=== PATIENT | male | born 1955 | race Caucasian/White ===

== ENCOUNTER → 2017-06-16 09:29 | Outpatient (CLI) | payer BC, SELFPAY ==
[2017-06-16 11:44] LABS: Absolute Lymphocyte Count 0.93 X10^3/ul (0.83-4.51); Absolute Neutrophil Count 4.4 X10^3/uL (2.0-7.7); Basophil# 0.03 X10^3/uL; Basophil% 0.5 % (0-1); Eosinophils% 3.2 % (0-5); Hematocrit 47.9 % (40-54); Hemoglobin 16.6 g/dl (13.0-16.5); Lymphocyte # 0.93 X10^3/ul (4.0); Lymphocyte % 14.9 % (19-41); Mean Corp Hgb Conc 34.7 g/gl (32-36); Mean Corpuscular Hgb 32.1 pg (27.0-32.0); Mean Corpuscular Volume 92.6 fL (80-94); Mean Platelet Vol. 11.6 fl (6.2-12.0); Monocyte# 0.72 X10^3/uL; Monocyte% 11.5 % (0-10); Neutrophil # 4.37 X10^3/uL (2.7-7.7); Neutrophil % 69.9 % (47-70); Platelet Count 209 K/mm3 (150-450); RBC Distribution Width CV 12.6 % (11.6-14.6); Red Blood Count 5.17 M/mm3 (4.6-6.2); White Blood Count 6.3 K/mm3 (4.4-11.0)
[2017-06-16 11:50] LABS: POSITIVE COUNT NO; POSITIVE DIFFERENTIAL NO; POSITIVE MORPHOLOGY NO
[2017-06-16 12:29] LABS: Anion Gap 9 (5-15); BUN 15 mg/dL (7-18); BUN/Creat Ratio 14.4 RATIO (10-20); Calcium,Total 8.6 mg/dL (8.5-10.1); Chloride 105 mmol/L (98-107); Creatinine, Serum 1.04 mg/dL (0.70-1.30); EST Glomerular Filtration Rate 77 mL/min (>60); Est Glom Filt Rate - Afr Amer 93 mL/min (>60); Glucose 95 mg/dL (74-106); Potassium 4.1 mmol/L (3.5-5.1); Sodium Level 141 mmol/L (136-145); Thyroid Stim Hormone (TSH) 1.33 uIU/mL (0.358-3.74)
[2017-06-17 08:57] LABS: Vitamin B12 474 pg/mL (211-911)
== END ==
PROVIDERS: Family Provider Family Medicine; PCP Family Medicine; Visit Provider Family Medicine
DX: E78.5 Hyperlipidemia, unspecified (principal); F32.9 Major depressive disorder, single episode, unspecified; R41.3 Other amnesia
CPT/HCPCS: 36415; 80048; 82607; 84439; 84443; 85025

== ENCOUNTER → 2018-03-09 14:52 | Outpatient (CLI) | payer BC, SELFPAY ==
[2018-03-09 15:12] LABS: PSA,Total- Diagnostic < 0.01 ng/mL (0.0-4.0)
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
== END ==
PROVIDERS: Obstetrics & Gynecology Reproductive Endocrinology; Family Provider Family Medicine; PCP Family Medicine
DX: C61 Malignant neoplasm of prostate (principal)
CPT/HCPCS: 84153

== ENCOUNTER → 2018-07-13 10:37 | Outpatient (CLI) | payer BC, SELFPAY ==
[2018-07-13 12:30] LABS: Cholesterol 180 mg/dL (200); High Density Lipoprotein 36 mg/dL; T4 Free Direct 0.85 ng/dL (0.76-1.46); Thyroid Stim Hormone (TSH) 1.72 uIU/mL (0.358-3.74); Triglycerides 282 mg/dL; Very Low Density Lipoprotein 56 mg/dL (5-40)
== END ==
PROVIDERS: Family Provider Family Medicine; PCP Family Medicine; Visit Provider Family Medicine
DX: E78.5 Hyperlipidemia, unspecified (principal); F32.9 Major depressive disorder, single episode, unspecified
CPT/HCPCS: 36415; 80061; 84439; 84443

== ENCOUNTER → 2018-07-15 13:26 | Outpatient (CLI) | payer SELFPAY ==
--- NOTE | 2018-07-15 13:33 | CT_ITS ---
STUDY: CT CHEST WITHOUT CONTRAST REASON FOR EXAM: Male, 62 years old. Calcium scoring examination. Radiological over read examination. RADIATION DOSAGE (If Supplied By Facility): CTDIvol = ( 12.19 ) mGy, DLP = ( 243.79 ) mGycm TECHNIQUE: Transaxial imaging was performed without the administration of intravenous contrast material. Individualized dose optimization techniques were used for this CT. COMPARISON: None. FINDINGS: Minimal increased linear markings at the lung bases suggests a mild linear scarring at the lung bases. There is no demonstrated pleural abnormality. There are calcifications of the coronary arteries. There are multiple small lymph nodes within the mediastinum, which are normal in size and morphology most compatible with reactive lymph hyperplasia. Normal hilar regions. Normal unenhanced pulmonary arteries. There is atherosclerotic calcification of the aortic arch. There are degenerative changes of the thoracic spine. There is no demonstrated abnormality of the visualized upper abdomen. CT/Limited Chest CT w/CCTA IMPRESSION: Mild linear scarring at the lung bases. Coronary artery calcification. Electronically Signed: Nayan Donohue, at 14:52 EDT , Service support ,
[2018-07-15 13:47] VITALS: BP 122/80; PULSE 66; RESP 18; O2SAT 99; BMI 28.5
--- NOTE | 2018-07-16 07:22 | CA.SCORE ---
Calcium Scoring Date of Study:: 07/16/18 Coronary Calcium Scoring: High-resolution Computed Tomographic imaging of the chest was performed on [ ], with particular attention paid to the coronary arteries. Images from the examination were analyzed for the presence and extent of coronary artery calcification , using coronary calcium quantification software. The patient tolerated the procedure well and there were no complications. The results of the coronary calcification analysis are provided below. - Findings Left Main (LM): 110 Left Anterior Descending (LAD): 17.5 Left Circumflex (LCX): 0 Right Coronary Artery (RCA): 0 Total Agatston Score: 127.5 Percentile Rankin - Conclusion Calcium Scoring Interpretation: Calcium Score Interpretation 0 No identifiable atherosclerotic plaque. Very low cardiovascular disease risk. <5% chance of presence coronary artery disease A Negative Examination 1-10 Minimal Plaque burden. Significant coronary artery disease very unlikely. 11-100 Mild plaque burden. Likely mild or minimal coronary atherosclerosis. 101-400 Moderate plaque burden Moderate non-obstructive coronary artery disease highly likely. Over 400 Extensive plaque burden. High likelihood of at least one significant coronary stenosis (>50% diameter) Calcium Score: 101 - 400 Moderate non-obstructive coronary artery disease highly like - The above is suggestive of moderate nonobstructive coronary disease likely. A full evaluation of cardiac risk should include an assessment of all conventional risk factors.
== END ==
PROVIDERS: Family Provider Family Medicine; PCP Family Medicine; Referring Provider Family Medicine; Visit Provider Family Medicine
DX: R73.01 Impaired fasting glucose (principal); E78.5 Hyperlipidemia, unspecified; Z82.49 Family history of ischemic heart disease and other diseases of the circulatory system
CPT/HCPCS: 75571; 76380

== ENCOUNTER → 2019-02-10 | Outpatient (CLI) | payer BC, SELFPAY ==
[2018-07-15 13:47] VITALS: BMI 28.5
[2019-02-10 15:38] LABS: Absolute Neutrophil Count 6.8 X10^3/uL (2.0-7.7); Basophil# 0.06 X10^3/uL; Basophil% 0.7 % (0-1); Eosinophils% 3.4 % (0-5); Hematocrit 50.6 % (40-54); Hemoglobin 16.6 g/dL (13.0-16.5); Mean Corp Hgb Conc 32.8 g/dL (32-36); Mean Corpuscular Hgb 30.7 pg (27.0-32.0); Mean Corpuscular Volume 93.7 fL (80-94); Mean Platelet Vol. 11.5 fl (6.2-12.0); Monocyte# 0.84 X10^3/uL; Monocyte% 9.5 % (0-10); NRBC Flagged by Analyzer 0 % (0-5); Neutrophil # 6.83 X10^3/uL (2.7-7.7); Neutrophil % 77.2 % (47-70); Platelet Count 204 K/mm3 (150-450); RBC Distribution Width CV 12.1 % (11.6-14.6); RBC Distribution Width SD 41.8 fl (35.1-43.9); White Blood Count 8.9 K/mm3 (4.4-11.0)
[2019-02-10 16:00] LABS: ALB/GLOB Ratio 1.1 RATIO (0.9-2.4); AST(SGOT) 13 U/L (15-37); Alanine Aminotransfer ALT/SGPT 33 U/L (16-61); Albumin, Serum 3.9 g/dL (3.2-5.0); Alkaline Phosphatase 82 U/L (45-117); Anion Gap 11 (5-15); BUN 15 mg/dL (7-18); CRP 8.55 mg/L (0.0-3.0); Calcium,Total 8.8 mg/dL (8.5-10.1); Chloride 109 mmol/L (98-107); Creatinine, Serum 1.07 mg/dL (0.70-1.30); EST Glomerular Filtration Rate 74 mL/min (>60); Est Glom Filt Rate - Afr Amer 90 mL/min (>60); Globulin 3.4 g/dL (2.2-4.2); Glucose 98 mg/dL (74-106); Potassium 3.6 mmol/L (3.5-5.1); Protein, Total 7.3 g/dL (6.4-8.2); Rheumatoid Factor < 10.0 IU/mL (<15); Sodium Level 144 mmol/L (136-145); Uric Acid 7.6 mg/dL (3.5-7.2)
[2019-02-10 16:12] LABS: Erythrocyte Sedimentation Rate 12 mm/hr (0-20)
[2019-02-12 12:06] LABS: Anti-Centromere B Ab <0.2 AI (0.0-0.9); Anti-Chromatin <0.2 AI (0.0-0.9); Anti-Jo <0.2 AI (0.0-0.9); Anti-Scleroderma-70 AB <0.2 AI (0.0-0.9); Anti-ribosomal P Antibodies <0.2 AI (0.0-0.9); RNP Ab <0.2 AI (0.0-0.9); SJOGREN'S Anti-SS-A test < 0.2 AI (0.0-0.9); SJOGREN'S Anti-SS-B test < 0.2 AI (0.0-0.9); Smith Ab <0.2 AI (0.0-0.9); Smith/RNP Ab <0.2 AI (0.0-0.9)
[2019-02-13 09:12] LABS: Anti-dsDNA Ab 3 IU/mL (0-9)
[2019-02-14 12:47] LABS: CCP IgG Antibodies 7 units (0-19)
== END | disposition home or self-care (01) ==
PROVIDERS: Family Provider Family Medicine; PCP Family Medicine; Visit Provider Family Medicine
DX: E78.5 Hyperlipidemia, unspecified (principal); R73.01 Impaired fasting glucose; M25.472 Effusion, left ankle
CPT/HCPCS: 36415; 80053; 84550; 85025; 85652; 86038; 86140; 86200; 86225; 86235; 86431

== ENCOUNTER 2019-02-11 18:32 | Observation (INO) | payer BC, SELFPAY ==
[2018-07-15 13:47] VITALS: BMI 28.5
[2019-02-11 18:33] VITALS: BP 155/88; PULSE 110; RESP 16; TEMP 36.3; O2SAT 100; BMI 27.8
--- NOTE | 2019-02-11 18:40 | EKG12_ITS ---
Test Reason : CP Blood Pressure : / mmHG Vent. Rate : 110 BPM Atrial Rate : 110 BPM P-R Int : 182 ms QRS Dur : 086 ms QT Int : 324 ms P-R-T Axes : 054 049 041 degrees QTc Int : 438 ms Sinus tachycardia Otherwise normal ECG Confirmed by BRENDEN SEBASTIAN, JAYLENE ([id number]), avid editor SHAE GODDARD ([id number]) on 02/14/2019 10:05:26 AM Referred By: YASH Confirmed By:JAYLENE WILCOX MD
--- NOTE | 2019-02-11 18:41 | ED.VIS.GEN ---
History of Present Illness Chief Complaint: Shortness of Breath Informant: Patient Onset: Today Context: Sudden Onset Timing: Continuous Current Severity: Mild Maximum Severity: Moderate Narrative: The patient is an otherwise healthy 63-year-old male with no significant medical history presents to the emergency department with sudden onset chest tightness and dyspnea. Patient states that he saw his primary care yesterday. He was started on prednisone for questionable gout in his ankle. He states that today, he was feeling improved. He was outside playing with his dog. He states that he had sudden onset left-sided substernal chest pressure and felt like he could not catch his breath. He was mildly nauseated. He was given aspirin by squad. He states that the pain has subsided. He denies any fevers or chills. He has no history of coronary vascular disease. He does not smoke. Prior similar symptoms: No Recent Illness/Hospitalization: No Past Medical History - Allergies and Home Meds Allergies/Adverse Reactions: Allergies No Known Allergies Allergy (Verified 02/11/19 19:08) Primary Care Physician: Clemente Tovar MD [Primary Care Provider] - Prior records reviewed: Yes Past Medical History: None Surgical History: cholecystectomy Smoking Status: Unknown if ever smoked Review of Systems General: Denies: Chills, Fever, Sweats Eyes: Denies: Visual changes - bilaterally, Diplopia ENT: Denies: Rhinorrhea, Sore throat Cardiovascular: Reports: Chest pain. Denies: Palpitations Respiratory: Reports: Dyspnea. Denies: Cough, Dyspnea on exertion Gastrointestinal: Denies: Abdominal pain, Nausea, Vomiting, Diarrhea, Melena, Hematochezia Genitourinary: Denies: Dysuria, Hematuria, Frequency Musculoskeletal: Denies: Back pain, Extremity Pain Skin: Denies: Rash, Wounds Neurological: Denies: Headache, Weakness, Numbness Physical Exam Vital Signs/Narrative: Vital Signs Temp Pulse Resp BP Pulse Ox 02/11/19 18:33 97.4 F L 110 H 16 155/88 H 100 Inital Vital Signs reviewed: Yes General: Well nourished, Well developed, No Acute Distress Head: Normocephalic, Atraumatic Eyes: Perrl, EOMI ENT: Moist mucous membranes, No rhinorrhea Neck: Supple, Nontender Cardiovascular: Regular rate, Regular rhythm, No murmurs Respiratory: No distress, CTA bilaterally, Chest nontender Abdomen: Soft, Nontender, Nondistended, Normal bowel sounds Back: Nontender, Normal Inspection Extremities: Nontender, No edema Skin: Normal color, No rash Neurological: Alert, Oriented x3, Cranial nerves II-XII grossly intact, Normal Strength, Normal Sensation Psychological: Normal affect, Normal Mood Diagnostic/Tx/Re-eval Chest X-Ray - ED: 2 View, Read by ED Physician, Normal, Heart, Lungs, Mediastinum Abnormal Lab Results 02/11/19 02/11/19 02/11/19 19:00 19:00 19:00 WBC 14.1 H RBC 5.10 Hgb 16.0 Hct 47.6 MCV 93.3 MCH 31.4 MCHC 33.6 RDW Std Deviation 41.1 RDW Coeff of Bird 11.9 Plt Count 266 MPV 10.9 Immature Gran % (Auto) 0.400 Neut % (Auto) 91.6 H Lymph % (Auto) 3.[address] [place] % (Auto) 4.6 Eos % (Auto) 0.0 Baso % (Auto) 0.1 Absolute Neuts (auto) 12.9 H Absolute Lymphs (auto) 0.46 L Nucleated RBC % 0 Differential Comment Platelet Estimate ADEQUATE RBC Morphology NORM C+C D-Dimer Quant (PE/DVT) 0.65 H* Sodium 142 Potassium 3.9 Chloride 110 H Carbon Dioxide 24.0 Anion Gap 8 BUN 19 H Creatinine 1.20 Estim Creat Clear Calc 67.11 Est GFR (MDRD) Af Amer 79 Est GFR (MDRD) Non-Af 65 BUN/Creatinine Ratio 15.8 Glucose 255 H Calcium 9.1 Troponin I < 0.015 - Rhythm Strip Rhythm Strip: Sinus Tach Rate: 110 Ectopy: None - EKG Initial EKG Interpretation: Sinus Rhythm, No Acute Injury Pattern, Sinus Tachycardia Prior: No Prior - Medical Decision Making The patient presents to the emergency department with sudden onset chest pain and dyspnea. The pain was not radiating. He states he is never really had pain like this before. The patient does not have any history of coronary vascular disease, but does have a strong family history. He did have an outpatient calcium scoring done earlier this year which is in the indeterminate range. He is had no recent stress testing. The patient did have some pleuritic component to his pain. D-dimer was ordered and was mildly elevated. CTA was obtained. The patient's cardiac enzymes were negative. At this point, I do feel that the most prudent plan would be to admit the patient for cardiac rule out. Patient was discussed with the hospitalist. Impression 1. Chest pain ED Disposition - Plan for ED Patient: Referrals: Clemente Tovar MD [Primary Care Provider] -
--- NOTE | 2019-02-11 18:45 | RAD_ITS ---
STUDY: X-RAY CHEST REASON FOR EXAM: Male, 63 years old. Shortness of breath TECHNIQUE: Frontal view of the chest COMPARISON: None. FINDINGS: There is left basilar opacity which may represent atelectasis. The lungs are otherwise clear. There are no pleural effusions. There is no pneumothorax. The heart is normal in size. The visualized osseous structures are within normal limits. RAD/Chest 1 View (Portable) IMPRESSION: Left basilar opacity which likely represents atelectasis. Otherwise, clear lungs. Electronically Signed: Ariel Olivas, at 19:14 EDT Tel , Service support ,
[2019-02-11 19:12] VITALS: O2SAT 95
[2019-02-11] MEDS: 0.9% Normal Saline 1,000 ML 150 ML IV (19:14)
[2019-02-11 19:17] LABS: Absolute Lymphocyte Count 0.46 X10^3/uL (0.83-4.51); Absolute Neutrophil Count 12.9 X10^3/uL (2.0-7.7); Basophil# 0.01 X10^3/uL; Basophil% 0.1 % (0-1); Hematocrit 47.6 % (40-54); Lymphocyte # 0.46 X10^3/ul (4.0); Lymphocyte % 3.3 % (19-41); Mean Corp Hgb Conc 33.6 g/dL (32-36); Mean Corpuscular Hgb 31.4 pg (27.0-32.0); Mean Corpuscular Volume 93.3 fL (80-94); Mean Platelet Vol. 10.9 fl (6.2-12.0); Monocyte# 0.65 X10^3/uL; Monocyte% 4.6 % (0-10); NRBC Flagged by Analyzer 0 % (0-5); Neutrophil # 12.89 X10^3/uL (2.7-7.7); Neutrophil % 91.6 % (47-70); POSITIVE DIFFERENTIAL YES; Platelet Count 266 K/mm3 (150-450); RBC Distribution Width CV 11.9 % (11.6-14.6); RBC Distribution Width SD 41.1 fl (35.1-43.9); White Blood Count 14.1 K/mm3 (4.4-11.0)
[2019-02-11 19:28] LABS: Anion Gap 8 (5-15); BUN 19 mg/dL (7-18); BUN/Creat Ratio 15.8 RATIO (10-20); Calcium,Total 9.1 mg/dL (8.5-10.1); Chloride 110 mmol/L (98-107); EST Glomerular Filtration Rate 65 mL/min (>60); Est Glom Filt Rate - Afr Amer 79 mL/min (>60); Estimated Creatinine Clearance 67.11 ml/min; Glucose 255 mg/dL (74-106); Potassium 3.9 mmol/L (3.5-5.1); Sodium Level 142 mmol/L (136-145)
[2019-02-11 19:46] LABS: Differential Indicated SCAN CRITERIA MET
[2019-02-11 19:48] LABS: D-Dimer Quantitative (DVT/PE) 0.65 FEU/ug/m (0.27-0.49)
--- NOTE | 2019-02-11 19:49 | CT_ITS ---
STUDY: CTA CHEST REASON FOR EXAM: Male, 63 years old. Chest pain RADIATION DOSAGE (If Supplied By Facility): CTDIvol = ( 13.49 ) mGy, DLP = ( 497.85 ) mGycm TECHNIQUE: The examination was performed with the intravenous administration of IV Isovue 370 100ML. Post-processing of the angiographic images was performed, with multiplanar reformation and 3D reconstruction. Individualized dose optimization techniques were used for this CT. COMPARISON: None. FINDINGS: Normal enhancement of the main pulmonary artery and right and left pulmonary arteries. Normal enhancement of the bilateral peripheral pulmonary arteries. There is no demonstrated pulmonary embolism. Normal thoracic aorta and visualized great vessels. There is no demonstrated aortic dissection. Normal heart and pericardium. Normal mediastinum. Normal hilar regions. Normal visualized trachea and bronchi. The lungs are well expanded. Normal pulmonary parenchyma. Normal pleura. Normal chest wall structures. Normal osseous structures. Normal visualized upper abdomen. CT/CTA Chest W/WO Contrast IMPRESSION: Normal CTA chest examination, without a demonstrated pulmonary embolism or arterial dissection. Electronically Signed: Ariel Olivas, at 21:12 EDT Tel , Service support ,
[2019-02-11 20:48] LABS: Platelet Estimate ADEQUATE (ADEQ); Red Cell Morphology NORM C+C NORMAL (NORM C&C)
[2019-02-11 21:12] VITALS: BP 142/74; PULSE 104; RESP 20; O2SAT 97
--- NOTE | 2019-02-11 21:18 | PCM.HP.STD ---
Problem List (1) Chest pain Status: Acute (2) Hyperlipidemia Status: Chronic (3) Depression Status: Chronic History of Present Illness Date of Admission: 02/11/19 Chief Complaint: chest pain The patient is a 63 year old M with a significant history of hyperlipidemia; former smoker; prostate cancer s/p prostatectomy; depression; and anxiety who presented to emergency department with chest pain. His chest pain started while walking to disentangle his dog. Patient was playing with his dog and his dog got entangled multiple times. He walked to disentangle his dog and got excruciating substernal chest pain. He describes his chest pain as a tightness. The chest pain is nonradiating. Associated with symptoms is shortness of breath and some mild nausea without vomiting. There are no alleviating or aggravating factors. He received a full dose aspirin from the paramedics. At the emergency department his chest pain had subsided although it was not completely gone. He has had some chest pain previously but this is different. His previous chest pain occurred about 4 years ago. As far as family history, patient's father had multiple heart attacks with his first heart attack in his 50s. Past Medical History Past Medical History (Chronic Problems): Chronic Problems Hyperlipidemia (Chronic) Depression (Chronic) Allergies No Known Allergies Allergy (Verified 02/11/19 19:08) Home Medications: Ambulatory Orders Medication Instructions Recorded Aspirin [Aspirin, Baby] 81 mg PO DAILY@0800 02/11/19 Bupropion HCl [Bupropion Xl] 300 mg PO DAILY 02/11/19 Clonazepam 1 mg PO DAILY 02/11/19 Indomethacin 25 mg PO TID 02/11/19 Prednisone 60 mg PO DAILY 02/11/19 Ropinirole HCl [Requip] 2 mg PO DAILY 02/11/19 Rosuvastatin Calcium 5 mg PO DAILY 02/11/19 Surgical History: cholecystectomy, herniorrhaphy, - - Prostatectomy Lives: Spouse/ Significant Other Smoking Status: Former smoker Alcohol: Occasional - *Family History Maternal History Items: Hypertension Paternal History Items: Heart Disease - His father had multiple heart attacks with his first heart attack in his 50s and his second heart attack in his 60s Review of Systems Constitutional: Denies: Chills, Fever, Weight Change HEENT: Denies: Head Aches, Sinus Congestion, Sinus Drainage Cardiovascular: Reports: Chest Tightness, Edema - Left ankle. Denies: Palpitations Respiratory: Reports: Shortness of Breath. Denies: Cough, Sputum production Gastrointestinal: Reports: Nausea. Denies: Abdominal Pain, Vomiting Genitourinary: Denies: Dysuria Musculoskeletal: Denies: Joint Pain, Joint Tenderness Skin: Denies: Rash, Wounds Neurological: Denies: Numbness, Tingling, Focal weakness Psychiatric: Reports: Anxiety, Depression. Denies: Homicidal Ideations, Suicidal Ideations Hematologic/ Lymphatic: Denies: Easy Bruising, Easy Bleeding VTE Information - Inpt Only VTE Present on Admission: No VTE Mechan Device Prophylaxis: SCD's VTE Pharm Prophylaxis ordered?: No Patient Problems: Active and Suspected Problems Chest pain (Acute) - Physical Exam Vitals/I&O's: Vital Signs Temp Pulse Resp BP Pulse Ox 97.4 F L 104 H 20 H 142/74 H 97 02/11/19 18:33 02/11/19 21:12 02/11/19 21:12 02/11/19 21:12 02/11/19 21:12 Oxygen Delivery Method Room Air Weight: 90.718 kg Body Mass Index (BMI) 27.8 General: Alert, Oriented x3, Cooperative HEENT: Atraumatic, PERRLA, EOMI, Normocephalic Neck: Supple, No JVD, Negative Carotid Bruits Lungs: Clear to auscultation, Normal air movement Cardiovascular: Normal S1, Normal S2, No murmurs, Tachycardic Abdomen: Bowel Sounds Present, Soft, Non Tender Extremities: Capillary Refill Less than 3 Seconds, Edema - Left ankle Skin: No rashes, No breakdown Musculoskeletal: No Tenderness to Palpation of Joints or Extremities Neurological: Cranial nerves II-XII grossly intact Psych/Mental Status: Normal Affect, Appropriate Laboratory Results 02/11/19 19:00: WBC 14.1 H, RBC 5.10, Hgb 16.0, Hct 47.6, MCV 93.3, MCH 31.4, MCHC 33.6, RDW Std Deviation 41.1, RDW Coeff of Bird 11.9, Plt Count 266, MPV 10.9, Immature Gran % (Auto) 0.400, Neut % (Auto) 91.6 H, Lymph % (Auto) 3.3 L, [place] % (Auto) 4.6, Eos % (Auto) 0.0, Baso % (Auto) 0.1, Absolute Neuts (auto) 12.9 H, Absolute Lymphs (auto) 0.46 L, Nucleated RBC % 0, Differential Comment , Platelet Estimate ADEQUATE, RBC Morphology NORM C+C 02/11/19 19:00: Sodium 142, Potassium 3.9, Chloride 110 H, Carbon Dioxide 24.0, Anion Gap 8, BUN 19 H, Creatinine 1.20, Estim Creat Clear Calc 67.11, Est GFR (MDRD) Af Amer 79, Est GFR (MDRD) Non-Af 65, BUN/Creatinine Ratio 15.8, Glucose 255 H, Calcium 9.1, Troponin I < 0.015 02/11/19 19:00: D-Dimer Quant (PE/DVT) 0.65 H* Current Medications Sodium Chloride () 1,000 mls @ 150 mls/hr IV .[id number] DONOVAN Last Admin: 02/11/19 19:14 Dose: 150 mls/hr Documented by: Assessment/Plan All Active Problems Chest pain (Acute) The patient is a 63 year old M with a significant history of hyperlipidemia; former smoker; prostate cancer s/p prostatectomy; depression; and anxiety who presented to emergency department with chest pain; in the setting of strong family history of heart attack. chest Pain Place on a monitored bed at PCU CXR independently reviewed confirms left basilar opacity; likely representing atelectasis. Incentives parameter ordered. EKG independently reviewed confirms tachycardia Because his d-dimer was mildly elevated chest CT was done. Chest CT did not show any pulmonary embolus or arterial dissection. Received full dose aspirin from paramedics. ASA 81 mg p.o. daily continued SL NTG 0.4 mg prn as needed for chest pain Statin: Home Crestor was continued Serial cardiac enzymes Stat EKG as needed for chest pain Treadmill stress test with nuclear imaging in the AM if the cardiac enzymes are negative Elevated blood pressure without diagnosis of hypertension. On presentation his blood pressure was not within goal. Patient reported at home systolic blood pressures around 120. Trend blood pressures. If elevated consider at least PRN blood pressure medication. Hyperglycemia Blood glucose on [facility] was 255. Will check A1c. Will put on serial Accu-Cheks with correction scale. Probable gout Patient was started on indomethacin and prednisone outpatient for gout of his left ankle. His left ankle was swollen outpatient. Per family prescribing physician considered rheumatoid arthritis/gout. We will continue indomethacin and prednisone in the hospital setting. Depression and anxiety Bupropion and clonazepam continued DVT prophylaxis SCD while planning for cardiac work up for chest pain Code Visit OBSV E&M: [id number] Initial observation care L3
[2019-02-11 21:47] VITALS: BMI 29.2
[2019-02-11 22:00] VITALS: BP 143/78; PULSE 96; RESP 18; TEMP 37.3; O2SAT 97
[2019-02-11 22:03] VITALS: BMI 29.3
--- NOTE | 2019-02-11 22:08 | EKG12_ITS ---
Test Reason : ADM EKG Blood Pressure : / mmHG Vent. Rate : 104 BPM Atrial Rate : 104 BPM P-R Int : 186 ms QRS Dur : 088 ms QT Int : 340 ms P-R-T Axes : 038 038 026 degrees QTc Int : 447 ms Sinus tachycardia Low voltage QRS Borderline ECG Confirmed by BRENDEN SEBASTIAN, JAYLENE ([id number]), makeup editor SHAE GODDARD ([id number]) on 02/16/2019 11:22:18 AM Referred By: YUKI Confirmed By:JAYLENE WILCOX MD
[2019-02-11 22:38] VITALS: PULSE 103
[2019-02-11] MEDS: Indomethacin 25 MG Capsule PO (22:59)
[2019-02-11] MEDS: clonazePAM 1 MG Tablet PO (22:59)
[2019-02-11] MEDS: Pramipexole Di-HCl 1 MG Tablet PO (22:59)
[2019-02-11 23:00] VITALS: PULSE 105
[2019-02-11] MEDS: Atorvastatin Calcium 10 MG Tablet PO (23:00)
[2019-02-11 23:22] LABS: Hemoglobin A1c 5.6 % (4.2-6.3)
[2019-02-12] VITALS (8 sets, daily range): BP systolic 129–148; BP diastolic 85–104; PULSE 82–99; RESP 16–24; TEMP 36.6–37; O2SAT 95–100
[2019-02-12] LABS: Bedside Glucose 207 mg/dL (70-110)
[2019-02-12] MEDS: Insulin Lispro 100 UNIT/ML INSULN.PEN SC
[2019-02-12] MEDS: Aspirin 81 MG TAB.CHEW PO (05:14)
[2019-02-12] MEDS: Calcium Carbonate 500 MG Tablet 1000 MG PO (05:14)
--- NOTE | 2019-02-12 05:55 | EKG12_ITS ---
Test Reason : AM EKG Blood Pressure : / mmHG Vent. Rate : 084 BPM Atrial Rate : 084 BPM P-R Int : 174 ms QRS Dur : 082 ms QT Int : 348 ms P-R-T Axes : 038 020 031 degrees QTc Int : 411 ms Normal sinus rhythm Low voltage QRS Borderline ECG Confirmed by BRENDEN SEBASTIAN, JAYLENE ([id number]), editorial cartoonist SHAE GODDARD ([id number]) on 02/16/2019 11:21:37 AM Referred By: YUKI Confirmed By:JAYLENE WILCOX MD
[2019-02-12 06:11] LABS: Bedside Glucose 117 mg/dL (70-110)
[2019-02-12] MEDS: Indomethacin 25 MG Capsule PO ×2 (10:18→12:57)
[2019-02-12] MEDS: predniSONE 20 MG Tablet 60 MG PO (10:19)
[2019-02-12] MEDS: buPROPion (XL) 300 MG TABLET.XL PO (10:19)
--- NOTE | 2019-02-12 10:42 | STRESSREP_ITS ---
Stress Test Report Date: 02-12-19 Procedure: Exercise tolerance test/imaging study Indications: Chest pain; shortness of breath/dyspnea Consent: Per the patient Procedure: The patient exercised on a Alfredo protocol for 9 minutes completing Stage III achieving a peak heart rate of 151 bpm (96 % predicted maximal heart rate) with a peak blood pressure 178/82 mmHg and a peak MET capacity of 10 METs. The baseline ECG demonstrated normal sinus rhythm. The peak exercise ECG demonstrated somatic/motion artifact with no obvious ECG changes. There was a rare PVC and isolated ventricular couplet during exercise. The functional capacity was considered good. There was vague nonlimiting chest discomfort during exercise with spontaneous resolution in recovery. The examination was discontinued secondary to dyspnea and leg discomfort. Impression: 1. Technically adequate (percent predicted maximal heart rate greater than 85%) exercise tolerance test 2. Peak exercise ECG with somatic/motion artifact with no obvious ECG changes 3. There was a rare PVC and isolated ventricular couplet during exercise 4. Nuclear images pending Myocardial perfusion imaging study: Technique: The patient was injected with 14.4 mCi of technetium 99m Cardiolite and subsequently rest SPECT Cardiolite nuclear imaging was obtained in the horizontal long, vertical long, and short axis views. The patient exercised on a Alfredo protocol for 9 minutes completing Stage III achieving a peak heart rate of 151 bpm (96 % predicted maximal heart rate) with a peak blood pressure 178/82 mmHg and a peak MET capacity of 10 METs. The patient was injected with 84.8 mCi of technetium 99m Cardiolite and subsequently stress SPECT Cardiolite nuclear imaging was obtained in the horizontal long, vertical long, and short axis views. A gated Cardiolite study at peak stress was obtained. Interpretation: Rest and stress SPECT Cardiolite nuclear imaging status post realignment, normalization, and attenuation correction, demonstrates the appearance of relative uniform tracer uptake and myocardial perfusion appearing within normal limits. There are no myocardial perfusion deficits appreciated on the resting/stress polar map images. There is end systolic thickening and brightening. The gated Cardiolite study demonstrates myocardial thickening and inward wall motion. The reported LVEF is 64 %. Impression: 1. Rest and stress SPECT Cardiolite nuclear imaging demonstrate relative uniform tracer uptake and myocardial perfusion appearing within normal limits. 2. The gated Cardiolite study reports an LVEF of 64 %. This note was generated with [employer] software. It may contain incorrect words, spelling, and punctuation that were not noted in checking the note before signing.
--- NOTE | 2019-02-12 11:35 | DCINST_ITS ---
- Discharge Diagnoses Current Active Problems: Current Active and Chronic Problems Chest pain (Acute) You will use the following diet at home:: Cardiac Your food should be the consistency of: Regular Your liquids should be the consistency of: Regular/Thin Discharge Activity: Return to Normal Activity Allergies/Adverse Reactions: Allergies No Known Allergies Allergy (Verified 02/11/19 19:08) Medications to take at Discharge Aspirin [Aspirin, Baby] 81 mg PO DAILY@0800 02/11/19 Bupropion HCl [Bupropion Xl] 300 mg PO DAILY 02/11/19 Clonazepam 1 mg PO DAILY 02/11/19 Indomethacin 25 mg PO TID 02/11/19 Prednisone 60 mg PO DAILY 02/11/19 Ropinirole HCl [Requip] 2 mg PO DAILY 02/11/19 Rosuvastatin Calcium 5 mg PO DAILY 02/11/19 Primary Care Physician: Clemente Tovar MD [Primary Care Provider] - Please follow up with your Primary Care Physician in: 1-2 weeks Test Results: Test results from this visit will be discussed in further detail at your follow- up appointment, if applicable.
--- NOTE | 2019-02-12 15:28 | PCM.DC.SUM ---
<Hiram Ashraf - Last Filed: 02/12/19 15:28> Discharge Date and Diagnosis Date of Admission: 02/11/19 Date of Discharge: 02/12/19 - Primary Discharge Diagnosis Chest pain - musculoskeletal HLD Depression, Anxiety - Secondary Discharge Diagnosis Chronic Problems Hyperlipidemia (Chronic) Depression (Chronic) Hospital Course and Treatment Imaging Results: RAD/Chest 1 View (Portable) IMPRESSION: Left basilar opacity which likely represents atelectasis. Otherwise, clear lungs. CT/CTA Chest W/WO Contrast IMPRESSION: Normal CTA chest examination, without a demonstrated pulmonary embolism or arterial dissection. Stress test: Impression: 1. Rest and stress SPECT Cardiolite nuclear imaging demonstrate relative uniform tracer uptake and myocardial perfusion appearing within normal limits. 2. The gated Cardiolite study reports an LVEF of 64 %. Operations: None Procedures: Stress test Summary of Care Provided: Hospital Course: The patient is a 63 year old M with pmhx of HLD and anx/depression with recent questionable diagnosis of gout who presented to the ER with c/o chest pain. He was briskly walking across his yard to help untangle his dog from its leash and developed midsternal chest tightness with SOB and nausea. He sat down with no relief. EMS brought him to the ER and he had negative Troponin and EKG. D dimer was elevated and follow up CTA chest was negative. WBC was elevated which was attributed to his recent use of prednisone for possible gout. This was given for ankle swelling, which he has none of at this time. His father had heart disease in his 50s. He also had a smoking hx. He was admitted to the PCU for CP workup. Troponin was negative x3, no events on tele. He had a stress test that was negative. He was felt to have musculoskeletal pain. He was discharged home in stable condition and advised to follow up with his PCP in 1-2 weeks. This patient was seen by Hiram Ashraf PA-C under the supervision of Doctor Chow. [] - Physical Exam Vitals/I&O's: Vital Signs Temp Pulse Resp BP Pulse Ox 98.6 F 99 16 140/95 H 96 02/12/19 10:16 02/12/19 10:55 02/12/19 10:16 02/12/19 10:16 02/12/19 10:16 Oxygen Delivery Method Room Air Weight: 210 lb 1.608 oz Body Mass Index (BMI) 29.2 Intake and Output for Last 24 Hours 02/10/19 02/11/19 02/12/19 23:59 23:59 23:59 Intake Total 895 / 895 240 / 240 Output Total 0 / 0 Balance 895 / 895 240 / 240 General: Alert, Oriented x3, Cooperative HEENT: Atraumatic, PERRLA, EOMI, Normocephalic Neck: Supple, No JVD, Negative Carotid Bruits Lungs: Clear to auscultation, Normal air movement Cardiovascular: Regular rate, No murmurs Abdomen: Bowel Sounds Present, Soft, Non Tender Extremities: No edema, Capillary Refill Less than 3 Seconds, - - no swelling erythema or tenderness. Skin: No rashes, No breakdown Musculoskeletal: No Tenderness to Palpation of Joints or Extremities Neurological: Cranial nerves II-XII grossly intact Psych/Mental Status: Normal Affect, Appropriate, Alert and oriented to time, place, person, mood and affect Laboratory Results 02/11/19 19:00: WBC 14.1 H, RBC 5.10, Hgb 16.0, Hct 47.6, MCV 93.3, MCH 31.4, MCHC 33.6, RDW Std Deviation 41.1, RDW Coeff of Bird 11.9, Plt Count 266, MPV 10.9, Immature Gran % (Auto) 0.400, Neut % (Auto) 91.6 H, Lymph % (Auto) 3.3 L, [place] % (Auto) 4.6, Eos % (Auto) 0.0, Baso % (Auto) 0.1, Absolute Neuts (auto) 12.9 H, Absolute Lymphs (auto) 0.46 L, Nucleated RBC % 0, Differential Comment , Platelet Estimate ADEQUATE, RBC Morphology NORM C+C 02/11/19 19:00: Sodium 142, Potassium 3.9, Chloride 110 H, Carbon Dioxide 24.0, Anion Gap 8, BUN 19 H, Creatinine 1.20, Estim Creat Clear Calc 67.11, Est GFR (MDRD) Af Amer 79, Est GFR (MDRD) Non-Af 65, BUN/Creatinine Ratio 15.8, Glucose 255 H, Calcium 9.1, Troponin I < 0.015 02/11/19 19:00: D-Dimer Quant (PE/DVT) 0.65 H* 02/11/19 19:00: Hemoglobin A1c 5.6 02/11/19 22:18: Troponin I < 0.015 02/11/19 23:55: POC Glucose 207 H 02/12/19 00:58: Troponin I < 0.015 02/12/19 06:06: POC Glucose 117 H Discharge Diet: Low fat/ Low Cholesterol, 2000 mg Sodium Diet Discharge Activity: Return to Normal Activity Home Medications: Medications to take at Discharge Aspirin [Aspirin, Baby] 81 mg PO DAILY@0800 02/11/19 Bupropion HCl [Bupropion Xl] 300 mg PO DAILY 02/11/19 Clonazepam 1 mg PO DAILY 02/11/19 Indomethacin 25 mg PO TID 02/11/19 Prednisone 60 mg PO DAILY 02/11/19 Ropinirole HCl [Requip] 2 mg PO DAILY 02/11/19 Rosuvastatin Calcium 5 mg PO DAILY 02/11/19 Primary Care Physician: Clemente Tovar MD [Primary Care Provider] - Please follow up with your Primary Care Physician in: 1-2 weeks Disposition: Home Minutes spent on discharge:: 35 Patient Condition:: Stable Medical Necessity - Tobacco Use Smoking Status: Former smoker Meaningful Use Info Meaningful Use Diagnoses (Choose all that apply): None applicable <Jake Chow - Last Filed: 02/12/19 16:17> Discharge Date and Diagnosis - Secondary Discharge Diagnosis Chronic Problems Hyperlipidemia (Chronic) Depression (Chronic) Hospital Course and Treatment Summary of Care Provided: The patient is a 63 year old M [] - Physical Exam Vitals/I&O's: Vital Signs Temp Pulse Resp BP Pulse Ox 98.6 F 99 16 140/95 H 96 02/12/19 10:16 02/12/19 10:55 02/12/19 10:16 02/12/19 10:16 02/12/19 10:16 Oxygen Delivery Method Room Air Weight: 210 lb 1.608 oz Body Mass Index (BMI) 29.2 Intake and Output for Last 24 Hours 02/10/19 02/11/19 02/12/19 23:59 23:59 23:59 Intake Total 895 / 895 240 / 240 Output Total 0 / 0 Balance 895 / 895 240 / 240 Laboratory Results 02/11/19 19:00: WBC 14.1 H, RBC 5.10, Hgb 16.0, Hct 47.6, MCV 93.3, MCH 31.4, MCHC 33.6, RDW Std Deviation 41.1, RDW Coeff of Bird 11.9, Plt Count 266, MPV 10.9, Immature Gran % (Auto) 0.400, Neut % (Auto) 91.6 H, Lymph % (Auto) 3.3 L, [place] % (Auto) 4.6, Eos % (Auto) 0.0, Baso % (Auto) 0.1, Absolute Neuts (auto) 12.9 H, Absolute Lymphs (auto) 0.46 L, Nucleated RBC % 0, Differential Comment , Platelet Estimate ADEQUATE, RBC Morphology NORM C+C 02/11/19 19:00: Sodium 142, Potassium 3.9, Chloride 110 H, Carbon Dioxide 24.0, Anion Gap 8, BUN 19 H, Creatinine 1.20, Estim Creat Clear Calc 67.11, Est GFR (MDRD) Af Amer 79, Est GFR (MDRD) Non-Af 65, BUN/Creatinine Ratio 15.8, Glucose 255 H, Calcium 9.1, Troponin I < 0.015 02/11/19 19:00: D-Dimer Quant (PE/DVT) 0.65 H* 02/11/19 19:00: Hemoglobin A1c 5.6 02/11/19 22:18: Troponin I < 0.015 02/11/19 23:55: POC Glucose 207 H 02/12/19 00:58: Troponin I < 0.015 02/12/19 06:06: POC Glucose 117 H Code Visit Addendum: Dr. Chow I personally examined the patient and reviewed the chart. I agree with the above. 63-year-old male presenting with chest pain. EKG was unremarkable and he had 3 serial troponins which were all normal. He underwent a stress test today which was also normal. On admission he had a CT of the chest to rule out a PE because an elevated d-dimer to 0.63, and his CTA was negative for PE. He is stable for discharge to continue his home medications. OBSV E&M: [id number] Observation care discharge
== END 2019-02-12 13:24 | disposition home or self-care (01) ==
LOC: ED 18:51 → PCU 23:08
PROVIDERS: Admitting Provider Hospitalist; Emergency Provider Emergency Medicine; Family Provider Family Medicine; PCP Family Medicine; Visit Provider Family Medicine
DX: R07.89 Other chest pain (principal); E78.5 Hyperlipidemia, unspecified; R11.0 Nausea; R06.00 Dyspnea, unspecified; F41.9 Anxiety disorder, unspecified; F32.9 Major depressive disorder, single episode, unspecified; Z79.52 Long term (current) use of systemic steroids; Z79.899 Other long term (current) drug therapy; Z79.82 Long term (current) use of aspirin; Z87.891 Personal history of nicotine dependence
CPT/HCPCS: 36415; 71045; 71275; 78452; 80048; 82962; 83036; 84484; 85025; 85379; 93005; 93017; 94002; 96360; 96361; 99218; 99285; A9500; J7030; Q9967; A4216; G0378

== ENCOUNTER → 2019-06-20 15:44 | Outpatient (CLI) | payer BC, SELFPAY ==
[2019-06-20 17:49] LABS: Basophil# 0.06 X10^3/uL; Eosinophil# 0.31 X10^3/uL; Eosinophils% 4.9 % (0-5); Hematocrit 49.4 % (40-54); Hemoglobin 16.4 g/dL (13.0-16.5); Lymphocyte % 17.5 % (19-41); Mean Corp Hgb Conc 33.2 g/dL (32-36); Mean Corpuscular Hgb 30.5 pg (27.0-32.0); Mean Platelet Vol. 11.2 fl (6.2-12.0); Monocyte# 0.76 X10^3/uL; Monocyte% 12.1 % (0-10); NRBC Flagged by Analyzer 0 % (0-5); Neutrophil # 4.03 X10^3/uL (2.7-7.7); Neutrophil % 64.2 % (47-70); Platelet Count 221 K/mm3 (150-450); RBC Distribution Width CV 11.9 % (11.6-14.6); RBC Distribution Width SD 40.1 fl (35.1-43.9); Red Blood Count 5.37 M/mm3 (4.6-6.2); White Blood Count 6.3 K/mm3 (4.4-11.0)
[2019-06-20 18:02] LABS: Vitamin B12 553 pg/mL (211-911)
[2019-06-20 18:17] LABS: ALB/GLOB Ratio 1.2 RATIO (0.9-2.4); AST(SGOT) 22 U/L (15-37); Alanine Aminotransfer ALT/SGPT 42 U/L (16-61); Alkaline Phosphatase 70 U/L (45-117); Anion Gap 6 (5-15); BUN 21 mg/dL (7-18); Calcium,Total 8.8 mg/dL (8.5-10.1); Chloride 103 mmol/L (98-107); EST Glomerular Filtration Rate 80 mL/min (>60); Est Glom Filt Rate - Afr Amer 97 mL/min (>60); Globulin 3.3 g/dL (2.2-4.2); Glucose 91 mg/dL (74-106); Potassium 4.2 mmol/L (3.5-5.1); Protein, Total 7.3 g/dL (6.4-8.2); Sodium Level 138 mmol/L (136-145); T4 Free Direct 0.86 ng/dL (0.76-1.46); Thyroid Stim Hormone (TSH) 1.58 uIU/mL (0.358-3.74)
== END ==
PROVIDERS: PCP Family Medicine; Visit Provider Family Medicine
DX: E78.5 Hyperlipidemia, unspecified (principal); F32.9 Major depressive disorder, single episode, unspecified; R41.3 Other amnesia
CPT/HCPCS: 36415; 80053; 82607; 84439; 84443; 85025

== ENCOUNTER → 2019-12-08 20:23 | Outpatient (CLI) | payer BC, SELFPAY | DX: G47.33 Obstructive sleep apnea (adult) (pediatric) (principal) | CPT/HCPCS: 95811 ==

== ENCOUNTER 2020-04-27 14:16 | Inpatient (IN) | payer BC, SELFPAY ==
[2020-04-27] VITALS (11 sets, daily range): BP systolic 112–151; BP diastolic 70–92; PULSE 86–111; RESP 14–24; TEMP 35.8–37.2; O2SAT 90–96; BMI 29.9
--- NOTE | 2020-04-27 14:48 | EKG12_ITS ---
Test Reason : GENERAL ILLNESS Blood Pressure : / mmHG Vent. Rate : 094 BPM Atrial Rate : 094 BPM P-R Int : 170 ms QRS Dur : 078 ms QT Int : 358 ms P-R-T Axes : 050 039 041 degrees QTc Int : 447 ms Normal sinus rhythm Normal ECG Confirmed by BRENDA CASTELLON MD ([id number]), editorial writer VAHID RAWLS ([id number]) on 05/02/2020 6:43:48 AM Referred By: CHRISTIAN Confirmed By:BRENDA CASTELLON MD
--- NOTE | 2020-04-27 15:08 | CT_ITS ---
STUDY: CT BRAIN WITHOUT CONTRAST REASON FOR EXAM: Male, 64 years old. -COVID. WEAKNESS AND FALLS. RADIATION DOSAGE (If Supplied By Facility): CTDIvol = ( 44.99 ) mGy, DLP = ( 846.73 ) mGycm TECHNIQUE: Transaxial CT imaging of the brain was performed without administration of intravenous contrast material. Individualized dose optimization techniques were used for this CT. COMPARISON: No relevant priors. FINDINGS: Normal soft tissue structures. Normal calvarium. Normal size ventricles and extra-axial spaces for the patient''s age. Normal white matter tracts of the cerebral hemispheres. Normal basal ganglia and thalami. Normal brainstem. Normal cerebellum. There is no intracranial hemorrhage. There are no findings of an acute ischemic infarction. Partial opacification of the right sphenoid sinus. CT/Brain/Head without Contrast IMPRESSION: Partial opacification of the right sphenoid sinus. Electronically Signed: Nayan Donohue, at 15:23 EST , Service support ,
--- NOTE | 2020-04-27 15:08 | RAD_ITS ---
STUDY: X-RAY CHEST REASON FOR EXAM: Male, 64 years old. GENERAL ILLNESS FOR 10 DAYS. FREQUENT FALLS. TECHNIQUE: Single AP portable view of the chest. COMPARISON: Comparison is made with prior study dated 02/11/2019. FINDINGS: Elevation of the right hemidiaphragm. The lungs are clear. There is no demonstrated pleural abnormality. Normal size heart. Normal mediastinum and garth. Normal visualized pulmonary arteries. There is atherosclerotic tortuosity of the aortic arch and descending thoracic aorta. There are degenerative changes of the visualized thoracic spine. Normal visualized ribs, clavicles, and shoulders. There is no demonstrated abnormality of the visualized soft tissue structures of the upper abdomen. RAD/Chest 1 View (Portable) IMPRESSION: No acute abnormality is seen. Electronically Signed: Nayan Donohue, at 15:23 EST , Service support ,
[2020-04-27 15:15] LABS: Absolute Lymphocyte Count 1.24 X10^3/uL (0.83-4.51); Absolute Neutrophil Count 18.3 X10^3/uL (2.0-7.7); Basophil# 0.08 X10^3/uL; Basophil% 0.4 % (0-1); Eosinophil# 0.43 X10^3/uL; Hematocrit 44.5 % (40-54); Hemoglobin 15.5 g/dL (13.0-16.5); Lymphocyte # 1.24 X10^3/ul (4.0); Lymphocyte % 5.9 % (19-41); Mean Corp Hgb Conc 34.8 g/dL (32-36); Mean Corpuscular Hgb 31.8 pg (27.0-32.0); Mean Corpuscular Volume 91.2 fL (80-94); Mean Platelet Vol. 10.7 fl (6.2-12.0); Monocyte# 0.83 X10^3/uL; Monocyte% 3.9 % (0-10); NRBC Flagged by Analyzer 0 % (0-5); Neutrophil # 18.32 X10^3/uL (2.7-7.7); Neutrophil % 87.1 % (47-70); Platelet Count 240 K/mm3 (150-450); RBC Distribution Width CV 12.6 % (11.6-14.6); RBC Distribution Width SD 41.5 fl (35.1-43.9); Red Blood Count 4.88 M/mm3 (4.6-6.2); White Blood Count 21.1 K/mm3 (4.4-11.0)
[2020-04-27 15:17] LABS: International Normalized Ratio 1.2; Prothrombin Time (Protime)PT. 14.3 SECONDS (11.7-14.9)
[2020-04-27 15:18] LABS: Partial Thromboplast Time 31.7 Seconds (24.1-36.2)
--- NOTE | 2020-04-27 15:20 | ED.DCSUM_ITS ---
- ER Visit Summary Date of Service: 04/27/20 Chief Complaint: [Not feeling well] History of Present Illness: The patient is a 64 M [presents to the emergency department complaint of feeling well for the last 10 days. Patient states that he has had shortness of breath with activity and exertion as well as body aches and headache. He denies urinary symptoms. He denies cough. He denies any Covid exposures. Patient states that his also is not been feeling well. Patient has history of high cholesterol and history of depression. Denies recent travel. Patient denies any chest pain.] Physical Examination: [HEENT-PERRLA, EOMI. Cranial nerves II through XII grossly intact. TMs clear. Mucous membranes moist. No adenopathy. Cardiovascular-regular rate and rhythm without murmur or ectopy Lungs-clear to auscultation, chest wall stable without crepitus or subcu emphysema Abdomen-normoactive bowel sounds, soft, nontender, no rebound or rigidity, no peritoneal signs. Extremities-intact ?4, normal range of motion, normal pulses, atraumatic] Test Results: [EKG obtained arrival shows sinus rhythm with a ventricular rate of 94 bpm with no acute segment changes. CBC with differential showed a white count of 21,000, hemoglobin 15, hematocrit 44, platelets 240. Chemistries unremarkable. LFTs unremarkable. Urinalysis normal. Lactate was 2.1. Chest x-ray showed nothing acute as interpreted by myself and radiology in agreement. CT scan of the brain without contrast showed right sphenoid opacification otherwise nothing acute.] Covid rapid antigen was negative. Emergency Department Course and Treatment: [IV line established on arrival. Patient was started normal saline. Blood cultures ordered and are pending. Covid PCR ordered and pending.] Patient started on Levaquin 750 mg IV empirica lly. Treatment Plan: [Pending results of Covid PCR] Disposition: [Pending] Impression: [Leukocytosis Lactic acidosis] This note was generated with [employer] software. It may contain incorrect words, spelling, and punctuation that were not noted in review of the chart prior to signing ED Disposition - Plan for ED Patient: Referrals: Clemente Tovar MD [Primary Care Provider] -
[2020-04-27 15:27] LABS: ALB/GLOB Ratio 0.8 RATIO (0.9-2.4); AST(SGOT) 30 U/L (15-37); Alanine Aminotransfer ALT/SGPT 63 U/L (16-61); Albumin, Serum 3.1 g/dL (3.2-5.0); Alkaline Phosphatase 87 U/L (45-117); Anion Gap 6 (5-15); BUN 21 mg/dL (7-18); BUN/Creat Ratio 17.9 RATIO (10-20); Calcium,Total 8.8 mg/dL (8.5-10.1); Chloride 108 mmol/L (98-107); Creatinine, Serum 1.17 mg/dL (0.70-1.30); EST Glomerular Filtration Rate 67 mL/min (>60); Est Glom Filt Rate - Afr Amer 81 mL/min (>60); Estimated Creatinine Clearance 67.93 ml/min; Glucose 130 mg/dL (74-106); Potassium 3.7 mmol/L (3.5-5.1); Protein, Total 7.1 g/dL (6.4-8.2); Sodium Level 138 mmol/L (136-145)
[2020-04-27 15:46] LABS: Lactic Acid 2.1 mmol/L (0.4-1.9)
[2020-04-27 16:05] LABS: Red Blood Cells-Urine 0 SEEN /hpf (0-5); Squamous Epithelial Cells - UA 0 SEEN /hpf (0-5); White Blood Cells 0 SEEN /hpf (0-5)
[2020-04-27 16:21] LABS: Glucose, Dipstick Normal (Normal); Ketone-Dipstick 5 mg/dl (Negative); Leukocyte Esterase-Dipstick 25 /ul (Negative); Nitrite-Dipstick Negative (Negative); Occult Blood-Urine 10 /ul (Negative); Protein-Dipstick 30 mg/dl (Negative); Urine Bilirubin Dipstick Negative (Negative); Urine Urobilinogen 1 mg/dl (Normal)
[2020-04-27 16:27] LABS: Color, Urine Yellow (Yellow); Urine Clarity Clear (Clear)
[2020-04-27 16:49] LABS: Bacteria 1+ /hpf (None Seen); Mucous, Urine 2+ /hpf (<or=2+)
[2020-04-27] MEDS: levoFLOXacin IV 750 MG/150 ML BAG 100 MG IV (16:56)
[2020-04-27] MEDS: Pramipexole Di-HCl 1 MG Tablet PO (18:51)
[2020-04-27 19:07] LABS: Reflex Lactate? Y
--- NOTE | 2020-04-27 21:35 | PCM.HP.STD ---
Problem List (1) Severe sepsis Status: Acute (2) Hyperlipidemia Status: Chronic (3) Depression Status: Chronic History of Present Illness Date of Admission: 04/27/20 Chief Complaint: Malaise The patient is a 64 year old M with a significant history of prostate cancer status post proctectomy; and obstructive sleep apnea who presents to the emergency department with 1 week history of intermittent malaise. Associated with his symptoms is generalized weakness; body aches; chills and rigors; headache; and nasal congestion. Outpatient Covid test was negative. Rapid antigen Covid and PCR at emergency department was negative. His is also beginning to feel like the same way as patient is feeling. His heart rate at emergency department was more than 90; respiratory rate was more than 20. Lactic acid was 2.1 Past Medical History Past Medical History (Chronic Problems): Chronic Problems Hyperlipidemia (Chronic) Depression (Chronic) Allergies No Known Allergies Allergy (Verified 04/27/20 14:19) Home Medications: Ambulatory Orders Medication Instructions Recorded Aspirin [Aspirin, Baby] 81 mg PO DAILY@0800 02/11/19 Clonazepam 1 mg PO QHS 02/11/19 Ropinirole HCl [Requip] 2 mg PO DAILY 02/11/19 Atorvastatin 20 mg PO QHS 04/28/20 Fexofenadine HCl [Acacia Allergy] 180 mg PO DAILY 04/28/20 Fluoxetine [Prozac] 20 mg PO DAILY 04/28/20 Surgical History: cholecystectomy, herniorrhaphy, - - Prostatectomy Smoking Status: Former smoker - *Family History Maternal History Items: Cancer, Hypertension Paternal History Items: Heart Disease - His father had multiple heart attacks with his first heart attack in his 50s and his second heart attack in his 60s Review of Systems Constitutional: Reports: Chills, Malaise, Weakness, Fatigue. Denies: Fever, Weight Change HEENT: Reports: Head Aches, Nasal Congestion Cardiovascular: Denies: Chest Pain, Palpitations Respiratory: Reports: Shortness of Breath. Denies: Cough, Sputum production Gastrointestinal: Denies: Abdominal Pain, Nausea, Vomiting Genitourinary: Denies: Dysuria Musculoskeletal: Denies: Joint Pain, Joint Tenderness Skin: Denies: Rash, Wounds Neurological: Denies: Numbness, Tingling, Focal weakness Psychiatric: Denies: Anxiety, Depression, Homicidal Ideations, Suicidal Ideations Hematologic/ Lymphatic: Denies: Easy Bruising, Easy Bleeding VTE Information - Inpt Only VTE Present on Admission: Yes VTE Mechan Device Prophylaxis: None VTE Pharm Prophylaxis ordered?: Yes Patient Problems: Active and Suspected Problems Severe sepsis (Acute) - Physical Exam Vitals/I&O's: Vital Signs Temp Pulse Resp BP Pulse Ox 98.2 F 93 20 H 112/72 91 04/27/20 20:45 04/27/20 20:45 04/27/20 20:45 04/27/20 20:45 04/27/20 20:45 Oxygen Delivery Method Room Air Weight: 97.522 kg Body Mass Index (BMI) 29.9 Intake and Output for Last 24 Hours 04/25/20 04/26/20 04/27/20 23:59 23:59 23:59 Intake Total 150 / 150 Balance 150 / 150 General: Alert, Oriented x3, Cooperative HEENT: Atraumatic, PERRLA, EOMI, Normocephalic Neck: Supple, No JVD, Negative Carotid Bruits Lungs: Clear to auscultation, Normal air movement Cardiovascular: Regular rate, Normal S1, Normal S2, No murmurs Abdomen: Bowel Sounds Present, Soft, Non Tender Extremities: No edema, Capillary Refill Less than 3 Seconds Skin: No rashes, No breakdown Musculoskeletal: No Tenderness to Palpation of Joints or Extremities Neurological: Cranial nerves II-XII grossly intact Psych/Mental Status: Normal Affect, Appropriate Microbiology Past 72 Hours 04/27/20 14:45 Mucosa - Nose SARS-CoV-2 Antigen (Rapid) - Final Laboratory Results 04/27/20 14:45: WBC 21.1 H, RBC 4.88, Hgb 15.5, Hct 44.5, MCV 91.2, MCH 31.8, MCHC 34.8, RDW Std Deviation 41.5, RDW Coeff of Bird 12.6, Plt Count 240, MPV 10.7, Immature Gran % (Auto) 0.700, Neut % (Auto) 87.1 H, Lymph % (Auto) 5.9 L, [place] % (Auto) 3.9, Eos % (Auto) 2.0, Baso % (Auto) 0.4, Absolute Neuts (auto) 18.3 H, Absolute Lymphs (auto) 1.24, Nucleated RBC % 0 04/27/20 14:45: PT 14.3, INR 1.2, APTT 31.7 04/27/20 14:45: Sodium 138, Potassium 3.7, Chloride 108 H, Carbon Dioxide 24.0, Anion Gap 6, BUN 21 H, Creatinine 1.17, Estim Creat Clear Calc 67.93, Est GFR (MDRD) Af Amer 81, Est GFR (MDRD) Non-Af 67, BUN/Creatinine Ratio 17.9, Glucose 130 H, Calcium 8.8, Total Bilirubin 0.80, AST 30, ALT 63 H, Alkaline Phosphatase 87, Total Protein 7.1, Albumin 3.1 L, Globulin 4.0, Albumin/Globulin Ratio 0.8 L 04/27/20 14:45: Lactic Acid 2.1 H* 04/27/20 15:58: Urine Color Yellow, Urine Clarity Clear, Urine pH 5.0, Ur Specific [place] 1.020, Urine Protein 30 H, Urine Glucose (UA) Normal, Urine Ketones 5 H, Urine Occult Blood 10 H, Urine Nitrite Negative, Urine Bilirubin Negative, Urine Urobilinogen 1 H, Ur Leukocyte Esterase 25 H, Urine RBC 0 SEEN, Urine WBC 0 SEEN, Ur Squamous Epith Cells 0 SEEN, Urine Bacteria 1+, Urine Mucus 2+ 04/27/20 17:06: COVID-19 (IZAIAH) Not Detected 04/27/20 21:15: Lactic Acid Pending Assessment/Plan All Active Problems Severe sepsis (Acute) The patient is a 64 year old M with a significant history of prostate cancer status post proctectomy; and obstructive sleep apnea who presents emergency department with 1 week history of intermittent malaise; generalized weakness; body aches; chills and rigors; headache; and nasal congestion; heart rate of more than 90; respiratory rate of more than 20; lactic acidosis; leukocytosis and with multiple negative Covid test. Severe sepsis of unknown origin Patient with heart rate of more than 90; respiratory rate of more than 20; lactic acid of more than 2; white count of 21.1. Trend lactic acid. Etiology unclear but with mildly abnormal urinalysis. Received Levaquin at emergency department and continued Blood cultures and urine culture pending; follow Discussed emergent department doctor to get rapid influenza test. Rapid influenza test returned negative. We will get a comprehensive respiratory pathogen panel. Flonase ordered. Tylenol as needed. UTI Denies urinary symptoms sirs criteria will treat as UTI. Of note urine is only mildly abnormal. Antibiotics as above. Obstructive sleep apnea Patient does not like hospital CPAP. He likes his own CPAP that his will bring if patient is still here. DVT prophylaxis Subcutaneous Lovenox ordered Inpatient E&M: [id number] Init Hosp L3
--- NOTE | 2020-04-28 00:36 | NURSING ---
Pandemic Documentation Initiated Emergency Documentation Start: 04/28/20 00:36 Freq: ONCE Status: Active Protocol: Created 04/28/20 00:36 MAYELA (Rec: 04/28/20 00:36 [id number]
[2020-04-28 00:41] VITALS: BP 122/72; PULSE 86; RESP 18; TEMP 37.2; O2SAT 96
[2020-04-28 00:43] VITALS: BMI 30.3
[2020-04-28 00:45] VITALS: O2SAT 96
[2020-04-28 00:54] VITALS: BMI 30.3
[2020-04-28] MEDS: Fluticasone 0.05% 1 SPRAY NASAL.SRY 2 SPRAY NASAL (05:19)
[2020-04-28 05:23] VITALS: BP 115/68; PULSE 84; RESP 18; TEMP 36.7; O2SAT 95
[2020-04-28 05:46] LABS: Absolute Neutrophil Count 8.8 X10^3/uL (2.0-7.7); Basophil# 0.05 X10^3/uL; Basophil% 0.4 % (0-1); Eosinophils% 5.9 % (0-5); Hematocrit 45.2 % (40-54); Hemoglobin 14.9 g/dL (13.0-16.5); Lymphocyte % 11.8 % (19-41); Mean Corpuscular Hgb 30.5 pg (27.0-32.0); Mean Corpuscular Volume 92.4 fL (80-94); Mean Platelet Vol. 10.6 fl (6.2-12.0); Monocyte# 0.81 X10^3/uL; Monocyte% 6.8 % (0-10); NRBC Flagged by Analyzer 0 % (0-5); Neutrophil # 8.82 X10^3/uL (2.7-7.7); Neutrophil % 74.3 % (47-70); Platelet Count 206 K/mm3 (150-450); RBC Distribution Width CV 12.8 % (11.6-14.6); RBC Distribution Width SD 43.5 fl (35.1-43.9); Red Blood Count 4.89 M/mm3 (4.6-6.2); White Blood Count 11.9 K/mm3 (4.4-11.0)
[2020-04-28 06:11] LABS: Anion Gap 7 (5-15); BUN 18 mg/dL (7-18); BUN/Creat Ratio 17.1 RATIO (10-20); Calcium,Total 8.4 mg/dL (8.5-10.1); Chloride 106 mmol/L (98-107); Creatinine, Serum 1.05 mg/dL (0.70-1.30); EST Glomerular Filtration Rate 75 mL/min (>60); Est Glom Filt Rate - Afr Amer 91 mL/min (>60); Glucose 93 mg/dL (74-106); Potassium 3.5 mmol/L (3.5-5.1); Sodium Level 137 mmol/L (136-145)
[2020-04-28 07:15] VITALS: O2SAT 92
[2020-04-28 08:14] VITALS: BP 127/86; PULSE 80; RESP 18; TEMP 36.7; O2SAT 92
--- NOTE | 2020-04-28 08:21 | PN_ITS ---
Patient Problems: Active and Suspected Problems Severe sepsis (Acute) Vitals/I&O's: Vital Signs Temp Pulse Resp BP Pulse Ox 98.0 F 80 18 127/86 H 92 04/28/20 08:14 04/28/20 08:14 04/28/20 08:14 04/28/20 08:14 04/28/20 08:14 Oxygen Delivery Method Room Air Weight: 217 lb 6.012 oz Body Mass Index (BMI) 30.3 Intake and Output for Last 24 Hours 04/26/20 04/27/20 04/28/20 23:59 23:59 23:59 Intake Total 150 / 150 Output Total 150 / 150 Balance 150 / 150 -150 / -150 Microbiology Past 72 Hours 04/27/20 22:05 Mucosa - Nose Influenza Types A,B Direct FA (SEGUN) - Final 04/27/20 14:45 Mucosa - Nose SARS-CoV-2 Antigen (Rapid) - Final Laboratory Results 04/27/20 14:45: WBC 21.1 H, RBC 4.88, Hgb 15.5, Hct 44.5, MCV 91.2, MCH 31.8, MCHC 34.8, RDW Std Deviation 41.5, RDW Coeff of Bird 12.6, Plt Count 240, MPV 10.7, Immature Gran % (Auto) 0.700, Neut % (Auto) 87.1 H, Lymph % (Auto) 5.9 L, [place] % (Auto) 3.9, Eos % (Auto) 2.0, Baso % (Auto) 0.4, Absolute Neuts (auto) 18.3 H, Absolute Lymphs (auto) 1.24, Nucleated RBC % 0 04/27/20 14:45: PT 14.3, INR 1.2, APTT 31.7 04/27/20 14:45: Sodium 138, Potassium 3.7, Chloride 108 H, Carbon Dioxide 24.0, Anion Gap 6, BUN 21 H, Creatinine 1.17, Estim Creat Clear Calc 67.93, Est GFR (MDRD) Af Amer 81, Est GFR (MDRD) Non-Af 67, BUN/Creatinine Ratio 17.9, Glucose 130 H, Calcium 8.8, Total Bilirubin 0.80, AST 30, ALT 63 H, Alkaline Phosphatase 87, Total Protein 7.1, Albumin 3.1 L, Globulin 4.0, Albumin/Globulin Ratio 0.8 L 04/27/20 14:45: Lactic Acid 2.1 H* 04/27/20 15:58: Urine Color Yellow, Urine Clarity Clear, Urine pH 5.0, Ur Sp ecific [place] 1.020, Urine Protein 30 H, Urine Glucose (UA) Normal, Urine Ketones 5 H, Urine Occult Blood 10 H, Urine Nitrite Negative, Urine Bilirubin Negative, Urine Urobilinogen 1 H, Ur Leukocyte Esterase 25 H, Urine RBC 0 SEEN, Urine WBC 0 SEEN, Ur Squamous Epith Cells 0 SEEN, Urine Bacteria 1+, Urine Mucus 2+ 04/27/20 17:06: COVID-19 (IZAIAH) Not Detected 04/27/20 21:15: Lactic Acid 1.0 04/28/20 05:04: WBC 11.9 H, RBC 4.89, Hgb 14.9, Hct 45.2, MCV 92.4, MCH 30.5, MCHC 33.0 D, RDW Std Deviation 43.5, RDW Coeff of Bird 12.8, Plt Count 206, MPV 10.6, Immature Gran % (Auto) 0.800, Neut % (Auto) 74.3 H, Lymph % (Auto) 11.8 L, [place] % (Auto) 6.8, Eos % (Auto) 5.9 H, Baso % (Auto) 0.4, Absolute Neuts (auto) 8.8 H, Absolute Lymphs (auto) 1.40, Nucleated RBC % 0 04/28/20 05:04: Sodium 137, Potassium 3.5, Chloride 106, Carbon Dioxide 24.0, Anion Gap 7, BUN 18, Creatinine 1.05, Estim Creat Clear Calc 75.70, Est GFR (MDRD) Af Amer 91, Est GFR (MDRD) Non-Af 75, BUN/Creatinine Ratio 17.1, Glucose 93, Calcium 8.4 L Current Medications Acetaminophen (Acetaminophen 325 Mg Tablet) 650 mg PO Q6H PRN PRN PRN Reason: Pain Score 1-10/Temp > 100.7 F Albuterol Sulfate (Albuterol 2.5 Mg/3 Ml Vial.Neb.) 2.5 mg INHALATION Q2H PRN PRN PRN Reason: Shortness of Breath/Wheezing Enoxaparin Sodium (Enoxaparin 40 Mg/0.4 Ml Syringe) 40 mg SC DAILY [facility] Fluticasone Propionate (Fluticasone 0.05% 1 [place] Nasal.Sry) 2 spray NASAL DAILY [facility] Last Admin: 04/28/20 05:19 Dose: 2 spray Documented by: Levofloxacin (Levaquin Iv) 750 mg in 150 mls @ 100 mls/hr IV Q24 DONOVAN Sodium Chloride () 250 mls @ 15 mls/hr IV .[id number] PRN PRN Reason: Saline Flush Sodium Chloride () 250 mls @ 15 mls/hr IV .[id number] PRN PRN Reason: Additional IVPB Infusion Melatonin (Melatonin 3 Mg Tablet) 3 mg PO QHS PRN PRN PRN Reason: INSOMNIA Nutritional Formula (Lactose Free) (Ensure Enlive 120 Ml Liquid) 120 ml PO 4X/DAY DONOVAN Ondansetron HCl (Ondansetron 4 Mg/2 Ml Vial) 4 mg IV Q8H PRN PRN PRN Reason: NAUSEA/VOMITING Sodium Chloride (0.9% Saline Lock 10 Ml Syringe) 10 - 40 ml IV UD PRN PRN Reason: SALINE FLUSH STROKE Vital Signs/Narrative: Vital Signs Temp Pulse Resp BP Pulse Ox 04/28/20 08:14 98.0 F 80 18 127/86 H 92 04/28/20 05:23 98.0 F 84 18 115/68 95 Medical Necessity - Tobacco Use Smoking Status: Former smoker Assessment/Plan All Active Problems Severe sepsis (Acute) The patient is a 64 year old M with a significant history of prostate cancer status post proctectomy; and obstructive sleep apnea who presents emergency department with 1 week history of intermittent malaise; generalized weakness; body aches; chills and rigors; headache; and nasal congestion; heart rate of more than 90; respiratory rate of more than 20; lactic acidosis; leukocytosis and with multiple negative Covid test. Severe sepsis of unknown origin Patient with heart rate of more than 90; respiratory rate of more than 20; lactic acid of more than 2; white count of 21.1. Trend lactic acid. Etiology unclear but with mildly abnormal urinalysis. Received Levaquin at emergency department and continued Blood cultures and urine culture pending; follow Discussed emergent department doctor to get rapid influenza test. Rapid influenza test returned negative. We will get a comprehensive respiratory pathogen panel. Flonase ordered. Tylenol as needed. UTI Denies urinary symptoms sirs criteria will treat as UTI. Of note urine is only mildly abnormal. Antibiotics as above. Obstructive sleep apnea Patient does not like hospital CPAP. He likes his own CPAP that his will bring if patient is still here. DVT prophylaxis Subcutaneous Lovenox ordered
[2020-04-28] MEDS: Enoxaparin 40 MG/0.4 ML Syringe SC (08:28)
[2020-04-28] MEDS: levoFLOXacin IV 750 MG/150 ML BAG 100 MG IV (08:35)
[2020-04-28] MEDS: 0.9% Saline Lock 10 ML Syringe IV (08:36)
--- NOTE | 2020-04-28 13:46 | CM.UR ---
RN JADA SUSTAINABILITY CONSULTANT CM to room to meet with patient and his for initial transition planning/care coordination assessment. MICHAEL ELIAS introduced self and role at [facility].? Pt voices understanding and consents to assessment at this time.? Pt resting in bed in no distress at this time.? Pt is A/O at this time and answers all questions appropriately.?? Care providers, pharmacy, and demographics verified/updated at this time. Presentation: not feeling well, sob Admission dx: sepsis of unknown origin. PCP: Dr. Tovar Preferred Pharmacy: [facility] Insurance: [employer] Prescription Benefit:? Yes. Denies any problems with affording copays. Living Arrangements: Single story with 2 steps to enter. ADLs: Independent with all ADLs. Living Will/HPOA:? States has both. Forgot to ask to bring in. States Janel is HCPOA. LNOK: Janel Transportation: drives self. also drives. DME: CPAP--pt states he is compliant with wearing it. Also has walker, cane, shower chair, grabber, sock aid. CPAP is from [facility]. HHC: none SNF: none Goal: home PLAN: ?Home, no needs anticipated. Patient denies any needs at this time. Instructed case management will remain available should any needs arise. Verb understanding. Angela Faye RN, CCM.
[2020-04-28 14:15] VITALS: BP 135/82; PULSE 86; RESP 18; TEMP 37.1; O2SAT 95
--- NOTE | 2020-04-28 14:50 | DCINST_ITS ---
- Discharge Diagnoses Current Active Problems: Current Active and Chronic Problems Severe sepsis (Acute) Hyperlipidemia (Chronic) Depression (Chronic) You will use the following diet at home:: Cardiac Your food should be the consistency of: Regular Discharge Activity: May Not Drive - For 2 weeks until see his PCP Weight Bearing Status: Weight bearing as tolerated Call your doctor if you observe: Fever of 101 or Higher, Coldness, Increased Pain, Numbness or Tingling, Change in Color, Inability to urinate, Inability to have a bowel movement, Shortness of breath, Dizziness, Fainting spells, Swelling in the ankles, Chest pain, Prolonged hiccoughing, Increased palpitations (irregular heartbeat), Calf discomfort, Uncontrolled pain Allergies/Adverse Reactions: Allergies No Known Allergies Allergy (Verified 04/27/20 14:19) Medications to take at Discharge Aspirin [Aspirin, Baby] 81 mg PO DAILY@0800 02/11/19 Clonazepam 1 mg PO QHS 02/11/19 Ropinirole HCl [Requip] 2 mg PO DAILY 02/11/19 Atorvastatin 20 mg PO QHS 04/28/20 Fexofenadine HCl [Acacia Allergy] 180 mg PO DAILY PRN PRN #0 04/28/20 Fluoxetine [Prozac] 20 mg PO DAILY 04/28/20 Primary Care Physician: Clemente Tovar MD [Primary Care Provider] - Please follow up with your Primary Care Physician in: In 2 weeks Test Results: Test results from this visit will be discussed in further detail at your follow- up appointment, if applicable.
--- NOTE | 2020-04-28 14:51 | DS.PCM_ITS ---
Discharge Date and Diagnosis - Problem List Patient Problems: Active and Suspected Problems Severe sepsis (Acute) Date of Admission: 04/27/20 Date of Discharge: 04/28/20 - Primary Discharge Diagnosis Acute Problems: Active Problems Severe sepsis (Acute) - Secondary Discharge Diagnosis Chronic Problems: Chronic Problems Hyperlipidemia (Chronic) Depression (Chronic) Hospital Course and Treatment Operations: None Summary of Care Provided: The patient is a 64 year old M with a significant history of prostate cancer status post proctectomy; and obstructive sleep apnea is admitted with nonspecific symptoms of generalized weakness, body aches, chills, headache and nasal congestion ongoing for few days. Patient had lactic acid 2.1, leukocytosis about 21,000, platelet count 240,000, ALT 63, albumin 3.1. Otherwise normal liver chemistry. UA 1+ bacteria, LE 25 but negative nitrite, pyuria. Patient denies burning micturition. Rapid SARS-CoV-2 antigen and COVID-19 PCR negative. Chest x-ray did not show acute abnormality. CT brain shows partial opacification of right sphenoid sinus. Patient had tachycardia, tachypnea lactic is more than 2.1, fulfills criteria for severe sepsis but blood pressure is normal 151/85. Clinically does not look like sick. Patient was empirically started on Levaquin and had 2 doses of Levaquin 750 mg IV. Patient is discharged on 3 more days of Augmentin for possible sphenoid sinusitis which might be viral with bacterial superinfection to complete short course of 5 days of antibiotic. Patient has history of allergic sinusitis. Do not think patient has UTI. Leukocytosis improved. Vitals normal heart rate in the 80s, blood pressure 115/76. Hypoxia tachypnea. Patient other comorbidities includes obstructive sleep apnea. Patient had a fall for which PT was done. PT, patient does not need any skilled therapy no therapy recommended. Discharge medication reconciliation done. Discharge follow-up instructions completed. Discharge process discussed with the patient and all questions were answered to patient's satisfaction. Total time spent, exact 35 minutes on discharge meds reconciliation, examination, coordination of care with nurses and ancillary staff, review of imaging and blood test and discussion with the patient on follow-up instru ctions Diagnosis: Severe sepsis possibly secondary to right sphenoid sinusitis Patient was admitted as inpatient but was discharged because of sooner recovery than expected at time of admission. Clinical Impression(s) from Imaging Studies Brain CT 04/27/20 15:08 IMPRESSION: Partial opacification of the right sphenoid sinus. Chest X-Ray 04/27/20 15:08 IMPRESSION: No acute abnormality is seen. Patient Problems: Active and Suspected Problems Severe sepsis (Acute) Objective: Seen and examined. Detailed history taken from the patient himself. No fever. Blood pressure, heart rate are in normal range. No hypoxia or tachypnea. Patient states he has been feeling weak, malaise body aches, chills headache and nasal congestion for about 3 to 4 days. Patient also stated he had a fall twice in the last 2 to 3 weeks. Has mild gait instability. Denies any organ system specific symptoms like shortness of breath, cough, respiratory distress, urinary tract symptoms including burning micturition, abdominal pain, alteration of bowel habit. Patient history of allergic sinusitis/rhinitis. Physical exam General: Alert, Oriented x3, Cooperative HEENT: Atraumatic, PERRLA, EOMI, Normocephalic Oral: No Gingival or Mucosal Lesions/ Ulcerations Neck: Supple, No JVD, Negative Carotid Bruits Lungs: Air entry equal in bilateral lung bases. No crepitation/rhonchi Cardiovascular: Regular rate, Regular Rhythm, Normal S1, Normal S2, No murmurs Abdomen: Bowel Sounds Present, Soft, Non Tender, Non-Distended : No renal angle tenderness. No suprapubic tenderness. Extremities: No edema, Capillary Refill Less than 3 Seconds Skin: No rashes, No breakdown Musculoskeletal: No Tenderness to Palpation of Joints or Extremities. Mild bilateral knee arthritis Neurological: Cranial nerves II-XII grossly intact, Deep Tendon Reflexes 2+/4 and Symmetrical, Neuro grossly intact Psych/Mental Status: Normal Affect, Appropriate. - Physical Exam Vitals/I&O's: Vital Signs Temp Pulse Resp BP Pulse Ox 98.8 F 86 18 135/82 H 95 04/28/20 14:15 04/28/20 14:15 04/28/20 14:15 04/28/20 14:15 04/28/20 14:15 Oxygen Delivery Method Room Air Weight: 217 lb 6.012 oz Body Mass Index (BMI) 30.3 Intake and Output for Last 24 Hours 04/26/20 04/27/20 04/28/20 23:59 23:59 23:59 Intake Total 150 / 150 890 / 890 Output Total 300 / 300 Balance 150 / 150 590 / 590 Microbiology Past 72 Hours 04/28/20 06:05 Mucosa - Nasopharyngeal Respiratory Panel (PCR) - Final 04/27/20 22:05 Mucosa - Nose Influenza Types A,B Direct FA (SEGUN) - Final 04/27/20 14:45 Mucosa - Nose SARS-CoV-2 Antigen (Rapid) - Final Laboratory Results 04/27/20 14:45: WBC 21.1 H, RBC 4.88, Hgb 15.5, Hct 44.5, MCV 91.2, MCH 31.8, MCHC 34.8, RDW Std Deviation 41.5, RDW Coeff of Bird 12.6, Plt Count 240, MPV 10.7, Immature Gran % (Auto) 0.700, Neut % (Auto) 87.1 H, Lymph % (Auto) 5.9 L, [place] % (Auto) 3.9, Eos % (Auto) 2.0, Baso % (Auto) 0.4, Absolute Neuts (auto) 18.3 H, Absolute Lymphs (auto) 1.24, Nucleated RBC % 0 04/27/20 14:45: PT 14.3, INR 1.2, APTT 31.7 04/27/20 14:45: Sodium 138, Potassium 3.7, Chloride 108 H, Carbon Dioxide 24.0, Anion Gap 6, BUN 21 H, Creatinine 1.17, Estim Creat Clear Calc 67.93, Est GFR (MDRD) Af Amer 81, Est GFR (MDRD) Non-Af 67, BUN/Creatinine Ratio 17.9, Glucose 130 H, Calcium 8.8, Total Bilirubin 0.80, AST 30, ALT 63 H, Alkaline Phosphatase 87, Total Protein 7.1, Albumin 3.1 L, Globulin 4.0, Albumin/Globulin Ratio 0.8 L 04/27/20 14:45: Lactic Acid 2.1 H* 04/27/20 15:58: Urine Color Yellow, Urine Clarity Clear, Urine pH 5.0, Ur Specific [place] 1.020, Urine Protein 30 H, Urine Glucose (UA) Normal, Urine Ketones 5 H, Urine Occult Blood 10 H, Urine Nitrite Negative, Urine Bilirubin Negative, Urine Urobilinogen 1 H, Ur Leukocyte Esterase 25 H, Urine RBC 0 SEEN, Urine WBC 0 SEEN, Ur Squamous Epith Cells 0 SEEN, Urine Bacteria 1+, Urine Mucus 2+ 04/27/20 17:06: COVID-19 (IZAIAH) Not Detected 04/27/20 21:15: Lactic Acid 1.0 04/28/20 05:04: WBC 11.9 H, RBC 4.89, Hgb 14.9, Hct 45.2, MCV 92.4, MCH 30.5, MCHC 33.0 D, RDW Std Deviation 43.5, RDW Coeff of Bird 12.8, Plt Count 206, MPV 10.6, Immature Gran % (Auto) 0.800, Neut % (Auto) 74.3 H, Lymph % (Auto) 11.8 L, [place] % (Auto) 6.8, Eos % (Auto) 5.9 H, Baso % (Auto) 0.4, Absolute Neuts (auto) 8.8 H, Absolute Lymphs (auto) 1.40, Nucleated RBC % 0 04/28/20 05:04: Sodium 137, Potassium 3.5, Chloride 106, Carbon Dioxide 24.0, Anion Gap 7, BUN 18, Creatinine 1.05, Estim Creat Clear Calc 75.70, Est GFR (MDRD) Af Amer 91, Est GFR (MDRD) Non-Af 75, BUN/Creatinine Ratio 17.1, Glucose 93, Calcium 8.4 L Current Medications Acetaminophen (Acetaminophen 325 Mg Tablet) 650 mg PO Q6H PRN PRN PRN Reason: Pain Score 1-10/Temp > 100.7 F Albuterol Sulfate (Albuterol 2.5 Mg/3 Ml Vial.Neb.) 2.5 mg INHALATION Q2H PRN PRN PRN Reason: Shortness of Breath/Wheezing Enoxaparin Sodium (Enoxaparin 40 Mg/0.4 Ml Syringe) 40 mg SC DAILY [facility] Last Admin: 04/28/20 08:28 Dose: 40 mg Documented by: Fluticasone Propionate (Fluticasone 0.05% 1 [place] Nasal.Sry) 2 spray NASAL DAILY [facility] Last Admin: 04/28/20 05:19 Dose: 2 spray Documented by: Levofloxacin (Levaquin Iv) 750 mg in 150 mls @ 100 mls/hr IV Q24 [facility] Last Infusion: 04/28/20 10:05 Dose: Infused Documented by: Sodium Chloride () 250 mls @ 15 mls/hr IV .[id number] PRN PRN Reason: Saline Flush Sodium Chloride () 250 mls @ 15 mls/hr IV .[id number] PRN PRN Reason: Additional IVPB Infusion Melatonin (Melatonin 3 Mg Tablet) 3 mg PO QHS PRN PRN PRN Reason: INSOMNIA Nutritional Formula (Lactose Free) (Ensure Enlive 120 Ml Liquid) 120 ml PO 4X/DAY [facility] Last Admin: 04/28/20 14:42 Dose: 120 ml Documented by: Ondansetron HCl (Ondansetron 4 Mg/2 Ml Vial) 4 mg IV Q8H PRN PRN PRN Reason: NAUSEA/VOMITING Sodium Chloride (0.9% Saline Lock 10 Ml Syringe) 10 - 40 ml IV UD PRN PRN Reason: SALINE FLUSH Last Admin: 04/28/20 08:36 Dose: 10 ml Documented by: Discharge Activity: May Not Drive - For 2 weeks until see his PCP Weight Bearing Status: Weight bearing as tolerated Call your doctor if you observe: Fever of 101 or Higher, Coldness, Increased Pain, Numbness or Tingling, Change in Color, Inability to urinate, Inability to have a bowel movement, Shortness of breath, Dizziness, Fainting spells, Swelling in the ankles, Chest pain, Prolonged hiccoughing, Increased palpitations (irregular heartbeat), Calf discomfort, Uncontrolled pain Home Medications: Medications to take at Discharge Aspirin [Aspirin, Baby] 81 mg PO DAILY@0800 02/11/19 Clonazepam 1 mg PO QHS 02/11/19 Ropinirole HCl [Requip] 2 mg PO DAILY 02/11/19 Amoxicillin/Potassium Clav [Augmentin 875-125 Tablet] 1 ea PO BID #6 tab 04/28/20 Atorvastatin 20 mg PO QHS 04/28/20 Fexofenadine HCl [[place] Allergy] 180 mg PO DAILY PRN PRN #0 04/28/20 Fluoxetine [Prozac] 20 mg PO DAILY 04/28/20 Following Prescriptions Were Given to Patient: Amoxicillin/Potassium Clav [Augmentin 875-125 Tablet] 1 ea PO BID #6 tab Transmission Status: Pending to [facility] Primary Care Physician: Clemente Tovar MD [Primary Care Provider] - Please follow up with your Primary Care Physician in: In 2 weeks Medical Necessity - Tobacco Use Smoking Status: Former smoker Meaningful Use Info Meaningful Use Diagnoses (Choose all that apply): None applicable Inpatient E&M: 23482 Disch Hosp
== END 2020-04-28 16:24 | disposition home or self-care (01) | DRG 872 ==
LOC: ED 17:10 → MS3 22:48
PROVIDERS: Emergency Medicine; Admitting Provider Hospitalist; Emergency Provider Emergency Medicine; PCP Family Medicine; Visit Provider Internal Medicine
DX: A41.9 Sepsis, unspecified organism (principal); R65.20 Severe sepsis without septic shock; E78.5 Hyperlipidemia, unspecified; F32.9 Major depressive disorder, single episode, unspecified; G47.33 Obstructive sleep apnea (adult) (pediatric); Z85.46 Personal history of malignant neoplasm of prostate; Z87.891 Personal history of nicotine dependence
CPT/HCPCS: 36415; 70450; 71045; 80048; 80053; 81001; 83605; 85025; 85610; 85730; 87040; 87086; 87426; 87633; 87635; 87804; 93005; 97162; 97166; 97802; 99285; J7030; A4216; U0002

== ENCOUNTER → 2020-05-15 15:00 | Outpatient (CLI) | payer BC, SELFPAY ==
[2020-04-28 00:43] VITALS: BMI 30.3
--- NOTE | 2020-05-15 15:04 | RAD_ITS ---
STUDY: X-RAY CHEST REASON FOR EXAM: Male, 64 years old. COUGH AND SOB ON EXERTION FOR A COUPLE WEEKS. TECHNIQUE: PA and lateral views of the chest. COMPARISON: Comparison is made with prior study dated 04/27/2020. FINDINGS: Hyperinflation. Stable elevation of the right hemidiaphragm. The lungs are clear. There is no demonstrated pleural abnormality. Normal size heart. Normal mediastinum and garth. Normal visualized pulmonary arteries. There is atherosclerotic tortuosity of the aortic arch and descending thoracic aorta. There are degenerative changes of the visualized thoracic spine. Normal visualized ribs, clavicles, and shoulders. There is no demonstrated abnormality of the visualized soft tissue structures of the upper abdomen. RAD/Chest PA and Lateral IMPRESSION: Hyperinflation. The lungs are clear. Electronically Signed: Nayan Donohue MD at 15:22 EST , Service support ,
[2020-05-15 18:01] LABS: Absolute Lymphocyte Count 0.89 X10^3/uL (0.83-4.51); Absolute Neutrophil Count 6.4 X10^3/uL (2.0-7.7); Basophil# 0.07 X10^3/uL; Basophil% 0.8 % (0-1); Eosinophil# 0.48 X10^3/uL; Eosinophils% 5.5 % (0-5); Hematocrit 50.2 % (40-54); Hemoglobin 16.1 g/dL (13.0-16.5); Lymphocyte # 0.89 X10^3/ul (4.0); Lymphocyte % 10.2 % (19-41); Mean Corp Hgb Conc 32.1 g/dL (32-36); Mean Corpuscular Hgb 30.6 pg (27.0-32.0); Mean Corpuscular Volume 95.4 fL (80-94); Mean Platelet Vol. 11.2 fl (6.2-12.0); Monocyte# 0.87 X10^3/uL; NRBC Flagged by Analyzer 0 % (0-5); Neutrophil # 6.37 X10^3/uL (2.7-7.7); Neutrophil % 72.8 % (47-70); Platelet Count 279 K/mm3 (150-450); RBC Distribution Width CV 12.6 % (11.6-14.6); RBC Distribution Width SD 44.9 fl (35.1-43.9); Red Blood Count 5.26 M/mm3 (4.6-6.2); White Blood Count 8.7 K/mm3 (4.4-11.0)
[2020-05-15 18:33] LABS: ALB/GLOB Ratio 0.9 RATIO (0.9-2.4); AST(SGOT) 24 U/L (15-37); Alanine Aminotransfer ALT/SGPT 46 U/L (16-61); Albumin, Serum 3.5 g/dL (3.2-5.0); Alkaline Phosphatase 90 U/L (45-117); Anion Gap 9 (5-15); BUN 16 mg/dL (7-18); BUN/Creat Ratio 13.9 RATIO (10-20); Calcium,Total 9.1 mg/dL (8.5-10.1); Chloride 105 mmol/L (98-107); Creatinine, Serum 1.15 mg/dL (0.70-1.30); EST Glomerular Filtration Rate 68 mL/min (>60); Est Glom Filt Rate - Afr Amer 82 mL/min (>60); Glucose 76 mg/dL (74-106); Potassium 3.6 mmol/L (3.5-5.1); Protein, Total 7.5 g/dL (6.4-8.2); Sodium Level 140 mmol/L (136-145)
== END ==
PROVIDERS: PCP Family Medicine; Referring Provider Family Medicine; Visit Provider Family Medicine
DX: R05 Cough (principal); R53.83 Other fatigue; R19.7 Diarrhea, unspecified; R06.02 Shortness of breath
CPT/HCPCS: 36415; 71046; 80053; 85025

== ENCOUNTER → 2020-05-25 11:53 | Outpatient (CLI) | payer BC, SELFPAY ==
[2020-04-28 00:43] VITALS: BMI 30.3
[2020-05-25 15:47] LABS: SARS-COV-2 TOTAL ABS Nonreactive (Nonreactive)
== END ==
PROVIDERS: PCP Family Medicine; Visit Provider Family Medicine
DX: Z20.828 Contact with and (suspected) exposure to other viral communicable diseases (principal)
CPT/HCPCS: 36415; 86769

== ENCOUNTER → 2020-06-01 13:04 | Outpatient (CLI) | payer BC, SELFPAY ==
[2020-06-01 15:06] LABS: Absolute Lymphocyte Count 0.85 X10^3/uL (0.83-4.51); Absolute Neutrophil Count 5.9 X10^3/uL (2.0-7.7); Basophil# 0.05 X10^3/uL; Basophil% 0.6 % (0-1); Eosinophil# 0.47 X10^3/uL; Eosinophils% 5.8 % (0-5); Hematocrit 48.7 % (40-54); Hemoglobin 15.9 g/dL (13.0-16.5); Lymphocyte # 0.85 X10^3/ul (4.0); Lymphocyte % 10.5 % (19-41); Mean Corp Hgb Conc 32.6 g/dL (32-36); Mean Corpuscular Hgb 30.7 pg (27.0-32.0); Mean Platelet Vol. 12.2 fl (6.2-12.0); Monocyte# 0.73 X10^3/uL; NRBC Flagged by Analyzer 0 % (0-5); Neutrophil # 5.92 X10^3/uL (2.7-7.7); Neutrophil % 73.5 % (47-70); Platelet Count 138 K/mm3 (150-450); RBC Distribution Width SD 44.2 fl (35.1-43.9); Red Blood Count 5.18 M/mm3 (4.6-6.2); White Blood Count 8.1 K/mm3 (4.4-11.0)
[2020-06-01 15:30] LABS: BNP,B-Type NATRIURETIC PEPTIDE 13.1 pg/mL (0-100)
[2020-06-01 15:38] LABS: AST(SGOT) 22 U/L (15-37); Alanine Aminotransfer ALT/SGPT 41 U/L (16-61); Albumin, Serum 3.6 g/dL (3.2-5.0); Alkaline Phosphatase 92 U/L (45-117); Anion Gap 8 (5-15); BUN 17 mg/dL (7-18); BUN/Creat Ratio 15.7 RATIO (10-20); Calcium,Total 8.6 mg/dL (8.5-10.1); Chloride 106 mmol/L (98-107); Creatinine, Serum 1.08 mg/dL (0.70-1.30); EST Glomerular Filtration Rate 73 mL/min (>60); Est Glom Filt Rate - Afr Amer 88 mL/min (>60); Globulin 3.5 g/dL (2.2-4.2); Glucose 88 mg/dL (74-106); Protein, Total 7.1 g/dL (6.4-8.2); Sodium Level 140 mmol/L (136-145); T4 Free Direct 0.94 ng/dL (0.76-1.46); Thyroid Stim Hormone (TSH) 1.22 uIU/mL (0.358-3.74)
== END ==
PROVIDERS: PCP Family Medicine; Visit Provider Family Medicine
DX: R53.83 Other fatigue (principal); A41.9 Sepsis, unspecified organism; R09.02 Hypoxemia; R06.00 Dyspnea, unspecified
CPT/HCPCS: 36415; 80053; 83880; 84439; 84443; 85025

== ENCOUNTER → 2020-06-28 08:33 | Outpatient (CLI) | payer BC, SELFPAY ==
[2020-06-13 08:47] VITALS: BMI 30.8
--- NOTE | 2020-06-28 15:34 | PFTCOMP_ITS ---
COMPLETE PULMONARY FUNCTION TEST INTERPRETATION Brief HPI: Patient is a 64 year old male, currently under the care of Dr. Villarreal, who presents to [facility] for complete pulmonary function tests secondary to diagnosis of dyspnea. Respiratory therapist reports good effort and reproducible results. Interpretation: Forced expiration spirometry shows no large airways obstructive ventilatory defect with an FEV1 of 82% predicted. There is no significant bronchodilator response by strict ATS criteria. Spirograms are of good quality and plateau normally. The respiratory flow volume loop shows a normal pattern. Lung volumes by body plethysmography show a normal total lung capacity at 6.11 L, 89% predicted. All other lung volumes are within normal limits. Diffusion capacity by carbon monoxide is normal at 89% predicted. The airway resistance is normal. No previous pulmonary function tests were available for review. Impression: These pulmonary function tests are within normal limits
== END ==
PROVIDERS: PCP Family Medicine; Referring Provider Internal Medicine Critical Care Medicine; Visit Provider Internal Medicine Critical Care Medicine
DX: R06.02 Shortness of breath (principal)
CPT/HCPCS: 94060; 94726; 94729

== ENCOUNTER → 2020-07-10 08:07 | Outpatient (CLI) | payer BC, SELFPAY ==
[2020-06-13 08:47] VITALS: BMI 30.8
[2020-07-10 08:43] VITALS: PULSE 100; PULSE 104; PULSE 106; PULSE 107; PULSE 108; PULSE 95; PULSE 98; O2SAT 92; O2SAT 93; O2SAT 95; O2SAT 96
--- NOTE | 2020-07-10 10:42 | WT_ITS ---
PSN 6 Minute Walk Test - 6 Minute Walk Test 6 Minute Walk Test: 6 Minute Walk Test PSN:6-Minute Walk Test Start: 07/10/20 08:43 Freq: Status: Active Protocol: [id number] Document 07/10/20 08:43 [facility] (Rec: 07/10/20 08:46 [facility] [id number]) 6 Minute Walk Test Date Performed 07/10/20 Time Performed 08:15 Height 5 ft 11 in Weight: 99.79 kg Weight in Pounds 220.[address]: Shivam Villarreal Assistive device used: None Pre-test Oxygen Delivery Method Room Air Pulse Ox (%) 95 Pulse Rate (60-100 beats/min) 95 Dyspnea Kelly Scale (0-10) 3 Reported Symptoms Increased Work of Breathing 1st minute Oxygen Delivery Method Room Air Pulse Ox (%) 92 Pulse Rate (60-100 beats/min) 100 Dyspnea Kelly Scale (0-10) 4 Number of Rests Taken 0 Reported Symptoms Increased Work of Breathing 2nd minute Oxygen Delivery Method Room Air Pulse Ox (%) 92 Pulse Rate (60-100 beats/min) 104 H Dyspnea Kelly Scale (0-10) 4 Number of Rests Taken 0 Reported Symptoms Increased Work of Breathing 3rd minute Oxygen Delivery Method Room Air Pulse Ox (%) 93 Pulse Rate (60-100 beats/min) 108 H Dyspnea Kelly Scale (0-10) 5 Number of Rests Taken 0 Reported Symptoms Increased Work of Breathing 4th minute Oxygen Delivery Method Room Air Pulse Ox (%) 93 Pulse Rate (60-100 beats/min) 108 H Dyspnea Kelly Scale (0-10) 5 Number of Rests Taken 0 Reported Symptoms Increased Work of Breathing 5th minute Oxygen Delivery Method Room Air Pulse Ox (%) 92 Pulse Rate (60-100 beats/min) 107 H Dyspnea Kelly Scale (0-10) 6 Number of Rests Taken 0 Reported Symptoms Increased Work of Breathing 6th minute Oxygen Delivery Method Room Air Pulse Ox (%) 93 Pulse Rate (60-100 beats/min) 106 H Dyspnea Kelly Scale (0-10) 6 Number of Rests Taken 0 Reported Symptoms Increased Work of Breathing Post-test Oxygen Delivery Method Room Air Pulse Ox (%) 96 Pulse Rate (60-100 beats/min) 98 Dyspnea Kelly Scale (0-10) 3 Reported Symptoms Increased Work of Breathing Full Laps Walked 18 Partial Lap, Number of Tiles Walked 13 Total Distance Walked (ft) 1075 - Interpretation Interpretation: The patient was able to ambulate 1075 feet over the course of 6 minutes on room air with no assistive devices or breaks. The patient experienced an oxygen [place] of 92%, but did have progressively increasing heart rates to a peak of 108 bpm. These findings are consistent with deconditioning. - Recommendations Recommendations: No supplemental oxygen is indicated at this time.
== END ==
PROVIDERS: PCP Family Medicine; Referring Provider Internal Medicine Critical Care Medicine; Visit Provider Internal Medicine Critical Care Medicine
DX: R06.02 Shortness of breath (principal)
CPT/HCPCS: 94618

== ENCOUNTER → 2020-08-02 12:56 | Outpatient (CLI) | payer MEDICARE, SELFPAY ==
[2020-07-13 10:43] VITALS: BMI 31.2
--- NOTE | 2020-08-02 12:58 | ECHOD_ITS ---
Reason For Study: SOB Procedure This was a 2D Doppler, Color Flow transthoracic echocardiogram. Exam performed in department. Left Ventricle Normal LV size. The estimated ejection fraction is 60 %. No evidence for diastolic dysfunction. No regional wall motion abnormalities noted. Right Ventricle Normal RV size. Normal systolic function. Atria Normal left atrium. Normal right atrium. No doppler evidence for ASD. Mitral Valve There is no mitral valve stenosis. No mitral valve insufficiency. Tricuspid Valve There is no tricuspid stenosis. Unable to estimate RV systolic pressure due to inadequate jet, pulmonary artery pressure probably normal. Aortic Valve Trisinus/trileaflet aortic valve. There is no aortic stenosis. No aortic valve insufficiency. Pulmonic Valve There is no pulmonic valvular stenosis. Trivial pulmonic valve insufficiency. Great Vessels Normal aortic root. Pericardium/Pleural No pericardial effusion. MMode/2D Measurements & Calculations LVIDd: 3.8 cm IVSd: 1.3 cm Ao root diam: 3.4 cm LVIDs: 2.5 cm LVPWd: 1.0 cm RVDd: 3.8 cm FS: 32.3 % LAV(MOD-bp): 36.9 ml LVAd ap4: 27.3 cm2 LVAd ap2: 28.3 cm2 LAV(MOD-bp) Indexed: 16.7 ml/m2 LVLd ap4: 8.0 cm LVLd ap2: 8.3 cm LAV(MOD-sp2): 38.0 ml EDV(MOD-sp4): 75.4 ml EDV(MOD-sp2): 81.3 ml LAV(MOD-sp4): 32.7 ml EDV(sp4-el): 78.8 ml EDV(sp2-el): 82.1 ml LVAs ap4: 16.4 cm2 LVAs ap2: 15.7 cm2 LVLs ap4: 7.0 cm LVLs ap2: 6.9 cm ESV(MOD-sp4): 31.7 ml ESV(MOD-sp2): 29.8 ml ESV(sp4-el): 32.5 ml ESV(sp2-el): 30.1 ml EF(MOD-sp4): 58.0 % EF(MOD-sp2): 63.4 % EF(sp4-el): 58.7 % SV(MOD-sp4): 43.8 ml SV(MOD-sp2): 51.5 ml SV(sp4-el): 46.3 ml LA dimension(2D): 2.9 cm LA A4 area: 13.2 cm2 RA A4 area: 8.9 cm2 Doppler Measurements & Calculations MV E max ulysses: 83.9 cm/sec Lat Peak E' Ulysses: 8.0 cm/sec Med Peak E' Ulysses: 7.8 cm/sec MV A max ulysses: 75.6 cm/sec E/E' lat: 10.5 E/E' med: 10.8 MV E/A: 1.1 Ao V2 max: 128.0 cm/sec LV V1 max: 95.0 cm/sec PA V2 max: 119.2 cm/sec Ao max P.6 mmHg LV V1 max P.6 mmHg ECHO/Echo Complete Interpretation Summary The estimated ejection fraction is 60 %. No evidence for diastolic dysfunction. Ordering Physician: Lexus Bettencourt Referring Physician: Clemente Tovar Performed By: Zoie Gill RDCS
== END ==
PROVIDERS: PCP Family Medicine; Visit Provider Nurse Practitioner Acute Care
DX: R06.00 Dyspnea, unspecified (principal); R06.02 Shortness of breath; R07.9 Chest pain, unspecified
CPT/HCPCS: 93306